=== PATIENT | female | born 1990 | race Caucasian/White ===

== ENCOUNTER 2020-08-22 17:13 | Emergency (ER) | payer MEDICARE, MEDICAID, SELFPAY ==
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
[2020-08-22 17:54] VITALS: BP 142/82; PULSE 112; RESP 16; TEMP 36.8; O2SAT 97; BMI 25.8
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
[2020-08-22] MEDS: 0.9 % Sodium Chloride 1,000 ML 999 ML IVCONT ×2 (18:36→21:18)
[2020-08-22 18:39] VITALS: BP 118/80; PULSE 81; O2SAT 98
[2020-08-22 18:45] LABS: MANUAL DIFF FLAG NO
[2020-08-22 18:46] LABS: Basophils Percent Auto 0.2 % (0-2); Eosinophils Percent Auto 0.1 % (0-4); Hematocrit 40.6 % (37-47); Hemoglobin 13.9 g/dl (12.0-16.0); Imm Gran Abs Auto 0.05 X10*3/uL (0.00-0.03); Imm Gran Pct Auto 0.3 % (0.0-0.4); Lymphocytes Absolute Auto 2.2 X10*3/uL (1.2-4.9); Lymphocytes Percent Auto 13.4 % (20-40); Mean Corpuscular HGB Conc 34.2 g/dl (31.0-35.0); Mean Corpuscular Volume 87.7 fL (80-98); Mean Platelet Volume 8.9 fL (9.4-12.3); Monocytes Absolute Auto 1.2 X10*3/uL (0.1-1.2); Monocytes Percent Auto 6.9 % (2-11); Neutrophils Absolute Auto 13.1 X10*3/uL (2.0-8.3); Neutrophils Percent Auto 79.1 % (45-73); Platelet Count 393 X10*3/uL (160-400); Red Blood Count 4.63 X10*6/uL (4.20-5.50); Red Cell Distribution Width 13.3 % (11.0-16.0); White Blood Count 16.6 X10*3/uL (4.8-10.8)
[2020-08-22 19:15] LABS: Alanine Aminotransferase 8 U/L (0-31); Albumin Level 4.4 g/dL (3.5-5.0); Alkaline Phosphatase 83 U/L (39-117); Anion Gap 15 (12-20); Aspartate Amino Transferase 14 U/L (5-31); Bilirubin Direct 0.2 mg/dL (0.0-0.5); Bilirubin Total 0.3 mg/dL (0.0-1.0); Blood Urea Nitrogen 8 mg/dL (9-16); Calcium 9.5 mg/dL (8.4-10.2); Carbon Dioxide 25 mmol/L (22-29); Chloride 105 mmol/L (96-108); Creatinine Clr Calc Pharmacy 106.9; Estimated Glomerular Filt Rate > 60; Glucose Random 101 mg/dL (60-115); Magnesium 2.1 mg/dL (1.6-2.6); Potassium 3.8 mmol/L (3.3-5.1); Sodium 141 mmol/L (135-145); Total Protein 7.1 g/dL (6.5-8.0)
[2020-08-22 19:21] LABS: HCG Quantitative < 2 mIU/mL
[2020-08-22] MEDS: iohexoL 350 MG/ML 100 ML INFUS..BTL IV (19:45)
[2020-08-22] MEDS: Morphine Sulfate 4 MG/ML CARTRIDGE IVPUSH (20:05)
[2020-08-22 20:51] LABS: Glucose Urine UA NEG (NEG); Leukocyte Esterase Urine NEG (NEG); Nitrite Urine NEG (NEG); Specific Gravity - Urine <= 1.005 (1.005-1.025); Urine Blood NEG (NEG); Urine Ketones 15 MG/DL (NEG); Urine Protein NEG (NEG-TRACE)
[2020-08-22 20:57] LABS: Appearance Urine CLEAR; Color Urine YELLOW
[2020-08-22] MEDS: cefTRIAXone sodium 500 MG, Lidocaine HCl 1 % MPF 1 ML IM (21:18)
[2020-08-22] MEDS: metroNIDAZOLE 500 MG TABLET 2000 MG PO (21:19)
[2020-08-22] MEDS: Azithromycin 500 MG TABLET 1000 MG PO (21:19)
[2020-08-22 21:27] VITALS: BP 131/74; PULSE 80; RESP 16; O2SAT 98
[2020-08-22] MEDS: ondansetron HCL 4 MG/2 ML VIAL IVPUSH (21:56)
[2020-08-22] MEDS: Ketorolac Tromethamine 30 MG/ML VIAL IVPUSH (21:56)
[2020-08-22 23:57] VITALS: RESP 16
[2020-08-23] MEDS: Acetaminophen 325 MG TABLET 975 MG PO (00:05)
[2020-08-23 02:29] VITALS: RESP 16
[2020-08-23 02:40] LABS: CT PCR NOT DETECTED (Not Detect.); NG PCR NOT DETECTED (Not Detect.)
[2020-08-23 08:51] LABS: BV Int Neg Control Negative (Negative); BV Int Pos Control Positive (Positive)
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
== END 2020-08-23 02:31 | disposition home or self-care (01) ==
PROVIDERS: Physician Assistant; Emergency Provider Emergency Medicine; PCP Nurse Practitioner Family
DX: T74.21XA Adult sexual abuse, confirmed, initial encounter (principal); Y07.03 Male partner, perpetrator of maltreatment and neglect
CPT/HCPCS: 36415; 74177; 80048; 80076; 81003; 83735; 84702; 85025; 86850; 86900; 86901; 87480; 87491; 87510; 87591; 87660; 96361; 96372; 96374; 96375; 99284; 99291; J0696; J1885; J2270; J2405; Q9967

== ENCOUNTER 2021-07-04 01:19 | Emergency (ER) | payer OTHER, MEDICAID, SELFPAY ==
[2021-07-04 01:34] VITALS: BMI 24.1
--- NOTE | 2021-07-04 02:08 | ED.PSYCH ---
HPI - Psych General Chief Complaint: Psychiatric Symptoms Stated Complaint: Crisis Time Seen by Provider: 07/04/21 02:08 Source: patient Mode of arrival: ambulatory Limitations: no limitations History of Present Illness HPI Narrative: 31-year-old female came in for evaluation of being depressed and frustrated. Patient drove herself to the ED for further psych evaluation, patient had argument with her mother who did restraining order on the patient and kicked her out of the house, patient now is homeless has no place to go came in to the hospital for help. At this point patient feel depressed but no SI or HI. Related Data Home Medications Medication Instructions Recorded Confirmed hydroxyzine pamoate 50 mg capsule 1 cap PO TID PRN 07/04/21 07/04/21 risperidone 1 mg tablet 1 tab PO BEDTIME 07/04/21 07/04/21 Allergies Allergy/AdvReac Type Severity Reaction Status Date / Time acetaminophen [From VICODIN] Allergy Unknown ITCHY/NAUSE Verified 08/22/20 17:58 OUS Cephalosporins Allergy Unknown RASH Verified 08/22/20 17:58 [CEPHALOSPORINS] codeine [CODEINE] Allergy Unknown ITCHY/NAUSE Verified 08/22/20 17:58 OUS sumatriptan [From IMITREX] Allergy Unknown HEAD FELT Verified 08/22/20 17:58 ON FIRE From VICODIN Allergy Unknown ITCHY/NAUSE Uncoded 08/22/20 17:58 OUS Review of Systems Review of Systems: All other systems are reviewed and are negative Constitutional: Reports as per HPI and Reports no additional constitutional complaints Eyes: Reports as per HPI and Reports no additional eye complaints Reports system reviewed and no additional complaints, except as documented Cardiovascular: Reports as per HPI and Reports no additional cardiovascular complaints Respiratory: Reports as per HPI and Reports no additional respiratory complaints Gastrointestinal: Reports as per HPI and Reports no additional gastrointestinal complaints Genitourinary: Reports no additional female genitourinary complaints Musculoskeletal: Reports no additional musculoskeletal complaints Skin/Breast: Reports system reviewed and no additional complaints, except as docu Psychiatric: Reports no additional psychiatric complaints Endocrine: Reports no additional endocrine complaints Hematologic/Lymphatic: Reports no additional hematologic/lymphatic complaints Allergic/Immunologic: Reports no additional allergic/immunologic complaints Reports system reviewed and no additional complaints, except as documented and Reports Abnormal speech present [facility] Past Medical History Medical History No known health problems Social History Social History Alcohol intake: never Patient Tobacco Use Status: Current everyday Tobacco user Substance Use Type: Marijuana Physical Exam Vital Signs: Vital Signs: BMI result Body Mass Index 24.1 Vital signs have been reviewed as appeared to be correct. Blood pressure normal. Heart rate normal. Respiration rate normal. Temperature normal. Oxygen saturation normal. Appearance: Alert. Oriented X3. No acute distress. Head: Normal external exam. Normocephalic. Atraumatic. No Lundberg signs noted. No raccoon eyes noted Eyes: PERRLA. EOMI. Conjunctiva and sclera normal. Eyelids normal. ENT: TM's Normal. Pharynx normal. Uvula midline. Moist mucous membranes. No trismus noted. No drooling noted. No muffled voice noted. Neck: Normal inspection. Neck supple. FROM. No adenopathy. Thyroid Normal. No meningeal signs. No neck mass noted. CVS: Normal heart rate and rhythm. Heart sound normal. No murmurs noted. Pulses normal throughout. Respiratory: No respiratory distress. Painless inspiration. Breath sounds normal. No wheezes/rales/rhonchi noted. Chest nontender. No accessory muscle usage noted or decreased air movement noted. Abdomen: Soft and nontender. Bowel sounds normal in all 4 quadrants. No distention noted. No organomegaly noted. No visible injury noted. Back: No CVA tenderness. Full range of motion noted. Skin: Skin warm and dry. Normal skin color. Normal skin turgor. No rashes/lesions/lacerations noted. Extremities: No lower extremity edema. Extremities exhibit normal range of motion. Extremities nontender. Neuro: Oriented X 3. Cranial nerve exam: II-XII are grossly intact No motor deficit. No sensory deficit. Reflexes normal. Patient Orientation: Person, Place, Time and Situation Level of Consciousness: Awake, Appropriate and Alert Patient Behavior: Appropriate, Guarded, Cooperative and Anxious Mood Description: Constricted, Blunted and Apprehensive Affect Description: Constricted, Blunted and Apprehensive Patient Cognition Impaired: No Ability to Follow Directions: Excellent Speech Pattern: Clear, Appropriate and Spontaneous Speech Memory Description: Intact, Immediate Intact and Short Term Intact Hallucinations: None Delusions: Not Present Thought Process: Intact Thought Content: positive for Intact, positive for Logical, denies Suicidal Ideation and denies Homicidal Ideation. Judgement: Good Judgement and Insight: Intact Course Course Course Narrative: Assessment and plan 31-year-old female came in for evaluation after having heart mint with her mother, patient feeling depressed but no SI or HI, patient will be kept on observation until then evaluated by [facility]. Reevaluation(s) Reevaluation #1: Physician observation started at 2:10 . Patient placed in physician observation because the patient needed more time for [facility] evaluation patient's vital sign were stable, patient is alert and oriented , neuro exam unchanged, unremarkable rest of physical exam. Time: 02:13 Discharge Plan Discharge Clinical Impression: Depression Prescriptions: No Action hydroxyzine pamoate 50 mg capsule 1 cap PO TID PRN (Reason: anxiety) 0RF risperidone 1 mg tablet 1 tab PO BEDTIME 0RF
[2021-07-04 02:28] LABS: MANUAL DIFF FLAG NO
[2021-07-04 02:29] VITALS: BP 116/76; PULSE 83; TEMP 36.4; O2SAT 97
[2021-07-04 02:30] LABS: Basophils Percent Auto 0.3 % (0-2); Eosinophils Absolute Auto 0.1 X10*3/uL (0.0-0.4); Eosinophils Percent Auto 1.3 % (0-4); Hematocrit 38.2 % (37.0-47.0); Hemoglobin 13.1 g/dl (12.0-16.0); Imm Gran Abs Auto 0.02 X10*3/uL (0.00-0.03); Imm Gran Pct Auto 0.2 % (0.0-0.4); Lymphocytes Absolute Auto 3.5 X10*3/uL (1.2-4.9); Lymphocytes Percent Auto 38.2 % (20-40); Mean Corpuscular HGB Conc 34.3 g/dl (31.0-35.0); Mean Corpuscular Hemoglobin 29.8 pg (27.0-33.0); Mean Platelet Volume 9.2 fL (9.4-12.3); Monocytes Absolute Auto 0.9 X10*3/uL (0.1-1.2); Monocytes Percent Auto 9.4 % (2-11); Neutrophils Absolute Auto 4.7 x10*3/uL (2.0-8.3); Neutrophils Percent Auto 50.6 % (45-73); Platelet Count 311 X10*3/uL (160-400); Red Blood Count 4.39 X10*6/uL (4.20-5.50); Red Cell Distribution Width 12.3 % (11.0-16.0); White Blood Count 9.2 X10*3/uL (4.8-10.8)
[2021-07-04 02:43] LABS: COVID-19 Test Negative (Negative); Ethanol < 10 mg/dL
[2021-07-04 02:44] LABS: Anion Gap 10 (12-20); Blood Urea Nitrogen 16 mg/dL (9-16); Calcium 10.2 mg/dL (8.4-10.2); Carbon Dioxide 28 mmol/L (22-29); Chloride 103 mmol/L (96-108); Estimated Glomerular Filt Rate > 60; Glucose Random 135 mg/dL (60-115); Potassium 3.5 mmol/L (3.3-5.1); Sodium 137 mmol/L (135-145)
[2021-07-04 02:44] LABS: Amphetamine Screen Urine Not Detected (Not Detect); Barbiturates, Urine Not Detected (Not Detect); Benzodiazepines Screen Urine Not Detected (Not Detect); Cannabinoid Screen Urine POSITIVE (Not Detect); Cocaine Screen Urine Not Detected (Not Detect); Fentanyl, urine Not Detected (Not Detect); Opiate Screen Urine Not Detected (Not Detect); Phencyclidine Screen Urine Not Detected (Not Detect)
--- NOTE | 2021-07-04 07:04 | PC.NURSE ---
Patient slept through the night, no distress observed/reported, behavior non concerning, med rec completed/pending provider's approval, VSS, [facility] referral completed/confirmed/pending ETA, will continue to monitor.
[2021-07-04 07:45] VITALS: BP 116/77; PULSE 88; RESP 19; TEMP 36.8; O2SAT 94
[2021-07-04] MEDS: hydrOXYzine HCL 50 MG TABLET PO (09:16)
--- NOTE | 2021-07-04 10:41 | MHC.CARE ---
CARE Team met with Pt who presented to [facility] voluntary due to her mom kicking her out. Pt denies current SI/HI/VH/AH. Pt reports her mom filed a restraining order on her due to ongoing issues. Pt stated she wasn't sure it was real . t/w verified that the restraining was active with Kenji RIVERA. Pt stated she has issues with her health insurance and picking up medication. CARE Team spoke with financial counseling who reported Pt was automatically given managed medicare/ [employer]. CARE Team explained information to Pt. Plan for Pt to drive herself to the living room. Pt was given financial counseling information regarding health insurance. Pt was provided information for [facility] crisis.
== END 2021-07-04 19:47 | disposition home or self-care (01) ==
PROVIDERS: Emergency Provider Emergency Medicine; PCP Nurse Practitioner Family
DX: F33.1 Major depressive disorder, recurrent, moderate (principal); F43.9 Reaction to severe stress, unspecified; F17.200 Nicotine dependence, unspecified, uncomplicated; Z71.6 Tobacco abuse counseling; Z20.822 Contact with and (suspected) exposure to COVID-19; Z79.899 Other long term (current) drug therapy
CPT/HCPCS: 36415; 80048; 80307; 82077; 85025; 87635; 99283; 99284

== ENCOUNTER 2023-11-06 10:38 | Outpatient (AMB) | payer OTHER, MEDICAID, SELFPAY ==
--- NOTE | 2023-11-06 10:44 | A.OFFPC_ITS ---
Vital Signs 11/06/23 10:55 11/06/23 11:18 Height 5 ft 4 in Weight 208 lb 2 oz BMI 35.7 BP 132/74 Blood Pressure Location Rt brachial Position Sitting Respiration 14 Pulse 120 H 105 H Pulse Source Pulse Oximeter Auscultation Pulse Oximetry (%) 96 Oxygen Delivery Method Room Air Intake Visit Reasons: requesting pe Intake Note: new patient to establish care Allergies alcohol Allergy (Severe, Verified 11/06/23 11:06) asthma acetaminophen [From VICODIN] Allergy (Unknown, Verified 11/06/23 11:06) ITCHY/NAUSEOUS Cephalosporins [CEPHALOSPORINS] Allergy (Unknown, Verified 11/06/23 11:06) RASH codeine [CODEINE] Allergy (Unknown, Verified 11/06/23 11:06) ITCHY/NAUSEOUS sumatriptan [From IMITREX] Allergy (Unknown, Verified 11/06/23 11:06) HEAD FELT ON FIRE From VICODIN Allergy (Unknown, Uncoded 08/22/20 17:58) ITCHY/NAUSEOUS Medication List - Last Reconciled 11/06/23 by Norma Weiner, ACCESS ANALYST- albuterol sulfate 90 mcg/actuation inhalation clonazepam mg PO clozapine 300 mg PO DAILY dextroamphetamine-amphetamine 20 mg ER 1 cap PO QAM fluticasone propionate 50 mcg/actuation sprays intranasal glycopyrrolate mg PO omeprazole 20 mg PO DAILY risperidone mg PO Tobacco use date assessed: 11/06/23 Dental Screening Dental Screen Date: 11/06/23 Did you have a dental visit in the last 12 months?: Yes Did you have a dental problem in the last 6 months where you did not have access to dental care?: No Was dental information given to patient?: Patient has dentist HPI HPI Comments History of Present Illness Details 33-year-old female with bipolar 1 disord er, schizophrenia, generalized anxiety disorder, major depressive disorder, chronic GERD, ADHD, mild intermittent asthma, renal stones, current tobacco dependence, obesity, self- reported pre melanoma on right hip Status post cone biopsy of her cervix, hemorrhoidectomy, several skin lesions removed, left breast abscess drainage Several psychiatric hospitalizations Health Maintenance: ? 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 Tdap reports up-to-date in the last 10 years Specialists: [facility] welfare eligibility worker Service Net prescriber and counselor GUME who admins her meds twice per day, unsure of the agency Here today as a new patient to establish care for complete physical exam. States that she is coming from [facility]. She does not have any medical records. She states that all of her chronic medical conditions are currently well controlled. She has had several psychiatric admissions, the last 03/15/2023 where she was sent in to [facility] for 3 months by the glass bender. She reports that she has not been hospitalized inpatient since this time but states that she has a lifetime of psychiatric decompensations requiring admission. She continues to smoke. She does have nicotine patches at home and will use them once she is ready. Optho - no glasses, no vision concerns. Asthma is well controlled Reports constipation. Use Colace in the past. Wonders if she can get a prescription for this. GERD well controlled Routine follow up [facility] Reports routine lab monitoring done by her care team [facility] Medical History (Updated 11/06/23 @ 13:06 by Norma Weiner, [facility]) Schizophrenia Bipolar 1 disorder Anxiety and depression Kidney stones Chronic GERD ADHD Asthma Breast lump Surgical History (Updated 11/06/23 @ 11:03 by Camille Logan MA) H/O hemorrhoidectomy H/O cone biopsy of cervix Family History (Updated 11/06/23 @ 11:06 by Camille Logan MA) Mother Mental health disorder Skin cancer Father Substance abuse Maternal Grandmother Skin cancer Paternal Grandfather Skin cancer Social History (Updated 11/06/23 @ 10:54 by Camille Logan MA) Household Members: None Housing: Apartment Are you a primary career services manager to a significant other at home: No Do you presently have visiting nurse or other home services: No 75 years or older and lives alone: No Alcohol intake: never Patient Tobacco Use Status: Current everyday Tobacco user Cigarettes Per Day: 5 Years Smoked: 10 e-Cigarette/Vaping Use: Never Used Second Hand Smoke Exposure: No Substance Use Type: Marijuana Current occupational status: unemployed Cognitive needs: No Hearing needs: No Vision needs: No Questionnaire PHQ-9 Over the last 2 weeks, how often have you been bothered by any of the following problems? 1. Little interest or pleasure in doing things: not at all 2. Feeling down, depressed, or hopeless: not at all 3. Trouble falling or staying asleep, or sleeping too much: not at all 4. Feeling tired or having little energy: not at all 5. Poor appetite or overeating: not at all 6. Feeling bad about yourself - or that you are a failure or have let yourself or your family down: several days 7. Trouble concentrating on things, such as reading the newspaper or watching television: not at all 8. Moving or speaking so slowly that other people could have noticed. Or the opposite - being so fidgety or restless that you have been moving around a lot more than usual: not at all 9. Thoughts that you would be better off or of hurting yourself in some way: not at all Total score: 1 Depression Screening Interpretation: Negative Depression Screening Done: Yes 25484 - PHQ-9 Billing: Yes Source: Developed by Drs. Marvin Lazo, Jennifer Wooten, Raymundo Grayson and colleagues, with an educational bebeto from [employer]. Thrive Questionnaire Date Thrive assessed: 11/06/23 I am a: Patient What is your living situation today?: I have a steady place to live Within the past 12 months, did the food you bought not last and you didn't have the money to get more?: Often true Within the past 12 months, did you worry whether your food would run out before you got money to buy more?: Often true Do you have trouble paying for medicines?: No Do you have trouble getting transportation to medical appointments?: No Do you have trouble paying your heating and electricity bill?: No Do you have trouble taking care of your child, family member or friend?: No Do you have trouble with day-to-day activities such as bathing, preparing meals, shopping, managing finances, etc.?: No Are you currently unemployed and looking for a job?: Yes Are you interested in more education?: No Currently or been in a relationship where the following occur: No concerns reported THRIVE Score: 2 AUDIT C Alcohol Use Questionnaire (AUDIT-C) 1. How often do you have a drink containing alcohol?: Never 2. How many drinks containing alcohol do you have on a typical day when you are drinking?: 1 or 2 3. How often do you have six or more drinks on one occasion?: Never Total Score: 0 Score Reviewed/Action Taken: Yes CHAIM-7 AMB Questionnaire CHAIM-7 Date CHAIM - 7 assessed: 11/06/23 Feeling nervous, anxious, or on edge: 1 = Several days Not being able to stop or control worryin = Several days Worrying too much about different things: 0 = Not at all Trouble relaxin = Not at all Being so restless that it is hard to sit still: 0 = Not at all Becoming easily annoyed or irritable: 0 = Not at all Feeling afraid as if something awful might happen: 0 = Not at all Total CHAIM-7 score (0-4 normal; 5-9 mild; 10-14 moderate; 15-21 severe): 2 Source: Developed by Drs. Marvin Lazo, Jennifer Wooten, Raymundo Grayson and colleagues, with an educational bebeto from [employer]. CHAIM-7 Assessment Billing CHAIM-7 Assessment Tool: CHAIM-7 Assessment 28159 ACT Questionnaire In the past 4 weeks, how much of the time did your asthma keep you from getting as much done at work, school or at home?: None of the time During the past 4 weeks, how often have you had shortness of breath?: Not at all During the past 4 weeks, how often did your asthma symptoms wake you up at night or earlier than usual in the morning?: Not at all During the past 4 weeks, how often have you had to use your rescue inhaler or nebulizer medication?: Not at all How would you rate your asthma control during the past 4 weeks?: Well controlled Score: 24 Review of Systems Const Details: Constitutional: Denies fever. Skin: Denies rash. Eye: Denies eye pain. ENMT: Denies sore throat and nasal congestion. Respiratory: Denies shortness of breath and cough. Gastrointestinal: Denies nausea, vomiting or abdominal pain. Cardiovascular: Denies chest pain and syncope. Genitourinary: Denies dysuria. Musculoskeletal: Denies back pain and extremity pain. Neurologic: Denies headaches, confusion, and weakness. Psychiatric: Denies suicidal thoughts Allergy/ Immunologic: Denies impaired immunity. Physical exam (Primary Care) Vital Signs: Last Vital Signs Pulse 105 H 11/06/23 11:18 Resp 14 11/06/23 10:55 BP 132/74 11/06/23 10:55 Pulse Ox 96 11/06/23 10:55 Oxygen Delivery Method Room Air 11/06/23 10:55 BMI result Body Mass Index 35.7 BMI Assessment/Plan discussion: High BMI High, discussed plan: lifestyle Tobacco/Smoking Status: Tobacco use Status Tobacco use date assessed 11/06/23 11/06/23 10:57 Patient Tobacco Use Status Current everyday Tobacco 11/06/23 10:54 e-Cigarette/Vaping Use Never Used 11/06/23 10:57 Are you ready to quit: No Tobacco cessation counseling provided: Yes Items discussed: Nicotine replacement Relapse Prevention: discussed the importance of a supportive environment, discussed extending NRT, discussed negative mood or depression after quitting, weight gain after smoking is common and discussed dietary, exercise and/or lifestyle changes CPT code: 18737 - 4-10 Minutes PHQ-9: PHQ-9 Score PHQ-9: Total score 1 11/06/23 12:34 Depression Screening Interpretation: Negative Thrive Assessment: Date of Thrive Assessment Date Thrive assessed 11/06/23 11/06/23 11:06 Currently or been in a relationship where the following occur: No concerns reported Const Other: General: Well developed, well nourished, in no acute distress. Appears stated age. Head: Normocephalic, atraumatic. Eyes: Pupils are equal, round and reactive to light and accommodation. Conjunctivae are clear. Vision grossly normal. Ears: TMs clear AU, EACS WNL Nose: Patent, without discharge. Mouth: There are no ulcers or lesions noted. No inflammation, no post nasal drip, no plaques nor exudates. Neck: Supple, no adenopathy or thyromegaly. Lungs: Clear to auscultation bilaterally. No rales, rhonchi or wheeze noted. Good air flow in all starr. Heart: Regular rate and rhythm. No murmurs, click, rubs or gallops are noted. Abdomen: Bowel sounds present in all quadrants. The abdomen is soft, nontender, with no masses or organomegaly noted. No hernias are noted. Musculoskeletal: Joints are nontender, without swelling, redness, or effusions. Range of motion is observed to be normal. Pulses: Peripheral pulses are equal and palpable bilaterally. Extremities: No clubbing, cyanosis nor edema is noted. Neurologic: Gait and station normal. Cranial Nerves 2-12 intact. Motor strength grossly symmetrical and intact. No sensory loss. Balance normal. Skin: No rashes, ulcers, or lesions noted. Turgor is good. Skin color is good. Hair and nails are without abnormalities. Psych: Normal eye contact, affect and mood appropriate, and normal interactions. Patient is alert and appropriate to context. Assessment and Plan Assessment & Plan (1) Schizophrenia: Code(s): F20.9 - Schizophrenia, unspecified Qualifiers: Schizophrenia type: disorganized schizophrenia Qualified Code(s): F20.1 - Disorganized schizophrenia (2) Bipolar 1 disorder: Code(s): F31.9 - Bipolar disorder, unspecified (3) Encounter for general adult medical examination without abnormal findings: Code(s): Z00.00 - Encounter for general adult medical examination without abnormal findings (4) CHAIM (generalized anxiety disorder): Code(s): F41.1 - Generalized anxiety disorder (5) MDD (major depressive disorder), recurrent episode: Code(s): F33.9 - Major depressive disorder, recurrent, unspecified Qualifiers: Major depression episode severity: moderate Qualified Code(s): F33.1 - Major depressive disorder, recurrent, moderate (6) Mild intermittent asthma in adult without complication: Code(s): J45.20 - Mild intermittent asthma, uncomplicated (7) Tobacco dependence: Code(s): F17.200 - Nicotine dependence, unspecified, uncomplicated (8) Severe obesity (BMI 35.0-35.9 with comorbidity): Code(s): E66.01 - Morbid (severe) obesity due to excess calories; Z68.35 - Body mass index [BMI] 35.0-35.9, adult (9) Precancerous skin lesion: Code(s): L98.9 - Disorder of the skin and subcutaneous tissue, unspecified (10) Chronic constipation: Code(s): K59.09 - Other constipation (11) Chronic GERD: Code(s): K21.9 - Gastro-esophageal reflux disease without esophagitis (12) ADHD: Code(s): F90.9 - Attention-deficit hyperactivity disorder, unspecified type Qualifiers: Attention deficit-hyperactivity disorder type: combined inattentive- hyperactive Qualified Code(s): F90.2 - Attention-deficit hyperactivity disorder, combined type Medications: New docusate sodium (Colace) hold for loose stools or diarrhea 100 mg PO BID PRN 180 caps 2RF constipation albuterol sulfate 90 mcg/actuation 2 inhalations inhalation Q6H PRN 8.5 grams 2RF bronchospasm omeprazole 20 mg PO DAILY 90 caps 2RF fluticasone propionate 50 mcg/actuation 2 sprays intranasal BID 16 grams 12RF Patient Instructions: Walk-In Care (Urgent Care): We Make it Easy Walk-in for urgent medical issues such as: ? Seasonal Allergies ? Insect Bites ? Cough ? Diarrhea ? Acute Asthma Attacks ? Back, Knee or Joint Pain ? Ear Infection ? Fever without a Rash ? Headaches ? Nausea ? Bush Eye, Rash or Skin Irritation ? Sore Throat ? Sports Physicals ? Vomiting Most insurances are accepted. Patients do not need to be part of the [facility] to seek care at the walk-in clinic. Locations [address] [place] [address] [place] [address] ? [phone] [facility] Walk-In Care in [place] provides services to ages 18 and over. Open Thursday-Thursday: 8 a.m. to 5 p.m. and Thursday: 9 a.m. to 3 p.m.* *Hours may vary due to staffing availability. To confirm Walk-In Care hours in [place], please call [phone]. [address] [place] [address] ? [phone] [facility] Walk-In Care in [place] provides services to ages 12 and over. Open Thursday-Thursday: 8 a.m. to 5 p.m. Hours may vary due to staffing availability. To confirm Walk-In Care hours in [place], please call [phone]. LABORATORY SERVICES: [facility] Lab ? Primary Location [address] [place] [address] Thursday through Thursday 6:00 AM ? 5:00 PM Thursday 7:00 AM ? 11:00 AM* [phone] [facility] Lab is centrally located near the front entrance of the [facility] for easy outpatient access. Convenient parking is provided for outpatients. *Hours may vary due to staffing availability. To confirm Laboratory hours for any location, please call [phone]. Offsite Location For your convenience, we offer offsite laboratory draw stations at the following locations: [address] [place] [address], [address], [address], [place] Thursday through Thursday 7:30 AM ? 1:00 PM* [phone] *Hours may vary due to staffing availability. To confirm Laboratory hours for any location, please call [phone]. [place] ? [facility] [address] [facility], [place] Thursday through Thursday 6:00 AM ? 3:30 PM* Thursday 6:30 AM ? 3 PM* [phone] *Hours may vary due to staffing availability. To confirm Laboratory hours for any location, please call [phone] [facility] Thursday through Thursday 7:30 AM ? 4:00 PM* [phone] *Hours may vary due to staffing availability. To confirm Laboratory hours for any location, please call [phone] [place] [address] Thursday through 9:00 AM ? 4:00 PM* *Hours may vary due to staffing availability. To confirm Laboratory hours for any location, please call [phone]. Appointments are not necessary. Walk-ins are welcome. Like all the departments throughout the [facility], our Lab undergoes frequent reviews to ensure the quality and accuracy of test results, and our staff takes special pride in its status as a nationally accredited facility. Patient Portal: ONE PATIENT. ONE RECORD. BETTER CARE. [facility] has a fully integrated, cutting- edge mobile electronic health information system that has revolutionized the way we care for our patients and manage our organization. This system improves communication and coordination enabling us to provide safe, higher-quality care, and an overall positive experience for staff and patients. Our first priority, as always, is to deliver the highest quality care possible. The system is running in the background supporting that priority. This portal is for all [facility] services and practices. If you are experiencing any technical difficulties with enrolling or logging into the Patient Portal please complete the [facility] Patient Portal Technical Support Form. [facility] now offers a new secure on-line interactive tool for patients to review their health information ? ?Patient Portal. This interactive web portal will enable patients and their families to take an active role in their care by providing easy, secure access to their health information via the internet. The Patient Portal provides patients with instant access to their health information, including laboratory results, medications, allergies, demographic information, visit history, and more. In addition to managing their own care, parents and health care proxies with authorized consent will appreciate the ability to access the records of those individuals for whom they provide care. Please note: if you wish to gain access (Proxy) to another patient?s portal, you will be required to come to the Medical Records Department in person at [facility]. Both the patient giving proxy access and the proxy will need to provide photo identification and complete the appropriate authorization. The Patient Portal also allows track their appointments online. The [facility] Patient Portal also saves patients time by allowing them to submit updates to their demographic and contact information prior to their visits. Portal email notifications will also alert patients to any new activity on their portal, such as test results and new appointments. In order to initially enroll in the [facility] Patient Portal, you will need to enter some required information including the following: * your [facility] Medical Record number * your personal home email address * name * date of Please note: In order to enroll in the [facility] Patient Portal, we need to have your email address on file in your electronic medical record. ?The email address needs to be specific for one person (yourself) in order for your Portal enrollment to be successful. ?You can update your email address in person with our Registration staff when you are registering for a hospital visit. ?Otherwise, you will need to come to the Health Information Management (Medical Records) Department at [facility]. ?We are open from Thursday ? Thursday from 7:30 a.m. ? 4:30 p.m. ?You will be required to present a photo id. Once you have successfully enrolled in the Patient Portal, you will receive a one-time user id and password for the Portal, sent to your email address. ?This will allow you to log into the Patient Portal within 99 hrs and reset your own logon id and password, and define personal security questions. ?Once your permanent login and password have been set, you can log into the [facility] Patient Portal at any time via the blue button above or from the Portal Logon button on any page of the [facility] website. [facility] encourage all of our patients to enroll in Patient Portal as it presents a valuable opportunity for patients and their families to actively participate in their care and stay healthy Welcome to [facility]. ?We look forward to working with you. Health screenings for women You should visit your health care provider from time to time, even if you are healthy. The purpose of these visits is to: Screen for medical issues Assess your risk for future medical problems Encourage a healthy lifestyle Update vaccinations and other preventive care services Help you get to know your provider in case of an illness Information Even if you feel fine, you should still see your provider for regular checkups. These visits can help you avoid problems in the future. For example, the only way to find out if you have high blood pressure is to have it checked regularly. High blood sugar and high cholesterol levels also may not have any symptoms in the early stages. A simple blood test can check for these conditions. There are specific times when you should see your provider or receive specific health screenings. The [place] Preventive Services Task Force publishes a list of recommended screenings. Below are screening guidelines for women ages 18 to 39. BLOOD PRESSURE SCREENING Your blood pressure should be checked at least once every 3 to 5 years if: Your blood pressure is in the normal range (top number less than 120 mm Hg and bottom number less than 80 mm Hg) You don't have risk factors for high blood pressure Ask your provider if you need your blood pressure checked more often if: The top number is 120 to 129 mm Hg or the bottom number is 70 to 79 mm Hg You have diabetes, heart disease, kidney problems, are overweight, or have certain other health conditions You have a first-degree relative with high blood pressure You are Black You had high blood pressure during a If the top number is 130 mm Hg or greater or the bottom number is 80 mm Hg or greater, this is considered stage 1 hypertension. Schedule an appointment with your provider to learn how you can reduce your blood pressure. Watch for blood pressure screenings in your area. Ask your provider if you can stop in to have your blood pressure checked. BREAST CANCER SCREENING Experts do not agree about the benefits of breast self-exams in finding breast cancer or saving lives. Talk to your provider about what is best for you. A screening mammogram is not recommended for most women under age 40. Your provider may discuss and recommend mammograms, MRI scans, or ultrasounds if you have an increased risk for breast cancer, such as: A mother or sister who had breast cancer at a young age (most often starting screening earlier than the age the close relative was diagnosed) You carry a high-risk genetic marker CERVICAL CANCER SCREENING Cervical cancer screening should start at age 21 years unless your provider advises otherwise. After the first test: Women ages 21 through 29 should have a Pap test every 3 years. Exoprts do not agree on whether HPV testing is recommended for this age group. Women ages 30 through 65 should be screened with either a Pap test every 3 years or the HPV test every 5 years or both tests every 5 years (called cotesting ). Women who have been treated for precancer (cervical dysplasia) should continue to have Pap tests for 20 years after treatment or until age 65, whichever is longer. If you have had your uterus and cervix removed (total hysterectomy), and you have not been diagnosed with cervical cancer or precancer (high grade cervical neoplasia), you do not need cervical cancer screening. CHOLESTEROL SCREENING Cholesterol screening should begin at: Age 45 for women with no known risk factors for coronary heart disease Age 20 for women with known risk factors for coronary heart disease Repeat cholesterol screening should take place: Every 5 years for women with normal cholesterol levels More often if changes occur in lifestyle (including weight gain and diet) More often if you have diabetes, heart disease, kidney problems, or certain other conditions DIABETES SCREENING You should be screened for diabetes starting at age 35 and then repeated every 3 years if you have no risk factors for diabetes. Screening may need to start earlier and be repeated more often if you have other risk factors for diabetes, such as: You have a first degree relative with diabetes. You are overweight or have obesity. You have high blood pressure, prediabetes, or a history of heart disease. Screening for diabetes should be done if you are planning to become and you are overweight and have other risk factors such as high blood pressure. DENTAL EXAM Go to the dentist once or twice every year for an exam and cleaning. Your dentist will evaluate if you need more frequent visits. EYE EXAM Have an eye exam every 5 to 10 years before age 40. If you have vision problems, have an eye exam every 2 years or more often if recommended by your provider. You should have an eye exam that includes an examination of your retina (back of your eye) at least every year if you have diabetes. IMMUNIZATIONS Commonly needed vaccines include: Flu shot: get one every year. COVID-19 vaccine: ask your provider what is best for you. Tetanus-diphtheria and acellular pertussis (Tdap) vaccine: have one at or after age 19 as one of your tetanus-diphtheria vaccines if you did not receive it as an adolescent. Tetanus-diphtheria: have a booster (or Tdap) every 10 years. Varicella vaccine: receive 2 doses if you never had chickenpox or the varicella vaccine. Hepatitis B vaccine: receive 2, 3, or 4 doses, depending on your exact circumstances. Measles, mumps, and rubella (MMR) vaccine: receive 1 to 2 doses if you are not already immune to MMR. Your provider can tell you if you are immune. Ask your provider about the human papillomavirus (HPV) vaccine if: You have not received the HPV vaccine in the past You have not completed the full vaccine series (you should catch up on this shot) Ask your provider if you should receive other immunizations if you have certain health problems that increase your risk for some diseases such as pneumonia. INFECTIOUS DISEASE SCREENING Women who are sexually active should be screened for chlamydia and gonorrhea up until age 25. Women 25 years and older should be screened for chlamydia and gonorrhea if at high risk. Screening for hepatitis C: All adults ages 18 to 79 should get a one-time test for hepatitis C. people should be screened at every . Screening for human immunodeficiency virus (HIV): All people ages 15 to 65 should get a one-time test for HIV. Depending on your lifestyle and medical history, you may also need to be screened for infections such as syphilis and HIV, as well as other infections. PHYSICAL EXAM All adults should visit their provider from time to time, even if they are healthy. The purpose of these visits is to: Screen for disease Assess your risk of future medical problems Encourage a healthy lifestyle Update your vaccinations and other preventive care services Maintain a relationship with a provider in case of an illness Your height, weight, and BMI should be checked at every exam. During your exam, your provider may ask you about: Depression and anxiety Diet and exercise Alcohol and tobacco use Safety issues, such as using seat belts, smoke detectors, and intimate partner violence Your medicines and risk for interactions SKIN SELF-EXAM Your provider may check your skin for signs of skin cancer, especially if you're at high risk, such as if you: Have had skin cancer before Have close relatives with skin cancer Have a weakened immune system OTHER SCREENING Talk with your provider about colon cancer screening if you have a strong family history of colon cancer or polyps, or if you have had inflammatory bowel disease or polyps yourself. Routine bone density screening of women under 40 is not recommended. Smoking Cessation How to Quit There are a lot of ways to quit smoking and many resources to help you. Family members, friends, and co-workers may be supportive or encouraging, but to be successful the desire and commitment to quit must be your own. Most people who have been able to successfully quit smoking made at least one unsuccessful attempt in the past. Try not to view past attempts to quit as failures, but rather as learning experiences. Stopping smoking or using smokeless tobacco is difficult, but anyone can do it. Know the symptoms to expect when you stop. Common symptoms include: ? An intense craving for nicotine ? Anxiety, tension, restlessness, frustration, or impatience ? Difficulty concentrating ? Drowsiness or trouble sleeping, as well as bad dreams and nightmares ? Drowsiness and trouble sleeping ? Headaches ? Increased appetite and weight gain ? Irritability or depression How severe your symptoms are depends on how long you smoked and how many cigarettes you smoked each day. Feel ready to quit? ? First and foremost, set a quit date and quit completely on that day. Before your quit date, you may begin reducing your cigarette use. But remember, there is no safe level of cigarette smoking. ? List the reasons why you want to quit. Include both short- and long-term benefits. ? Identify the times you are most likely to smoke. For example, do you tend to smoke when feeling stressed or down? When out at night with friends? While drinking coffee or alcohol? When bored? While driving? Right after a meal or sex? During a work break? While watching TV or playing cards? When you are with other smokers? ? Let all of your friends, family, and co-workers know of your plan to stop smoking and your quit date. Just being aware that they know what you're going through can be helpful, especially when you are grumpy. ? Get rid of all your cigarettes just before the quit date, and clean out anything that smells like smoke, such as clothes and furniture. Make a plan about what you will do instead of smoking at those times when you are most likely to smoke. ? Be as specific as possible. For example, drink tea instead of coffee -- tea may not trigger the desire for a cigarette. Or, take a walk when you feel stressed. ? Remove ashtrays and cigarettes from the car. Place pretzels or hard candies there instead. Pretend-smoke with a straw. ? Find activities that focus your hands and mind but are not taxing or fattening. Computer games, solitaire, knitting, sewing, and crossword puzzles may help. ? If you normally smoke after eating, find other ways to end a meal. Play a tape or CD, eat a piece of fruit, get up and make a phone call, or take a walk (a good distraction that also powell calories). Make other changes in your lifestyle. ? Change your daily schedule and habits. Eat at different times or eat several small meals instead of three large ones. Sit in a different chair or even a different room. ? Satisfy your oral habits by eating celery or other low-calorie snack, chewing sugarless gum, or sucking on a cinnamon stick. ? Go to public places and restaurants where smoking is prohibited or restricted. ? Eat regular meals and don't eat too much candy or sweet things. ? Get more exercise. Take walks or ride a bike. Exercise helps relieve the urge to smoke. Set short-term quitting goals and reward yourself when you meet them. ? Every day, put the money you normally spend on cigarettes in a jar. Then buy something pleasurable after a period of time. ? Try not to think about all the days ahead you will need to avoid smoking. Take it one day at a time. ? Even one puff or one cigarette will make your desire for more cigarettes even stronger. However, it is normal to make mistakes. So even if you have one cigarette, you don't need to take the next one. Other tips to help you quit smoking and stick to it: ? Enroll in a smoking cessation program (hospitals, health departments, community centers, and work sites often offer programs). Learn about self-hypnosis or other techniques. ? Ask your health care provider about prescription medications that are safe and appropriate for you. ? Find out about nicotine patches, gum, and sprays. The [employer]'s web site -- www.cancer.org -- is an excellent resource for smokers who are trying to quit, and the [employer] [place] [employer] can help some smokers kick the habit. Above all, don't get discouraged if you aren't able to quit smoking the first time. Nicotine addiction is a hard habit to break. Try something different next time. Develop new strategies, and try again. Many people take several attempts to finally kick the habit. 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2 Attention deficit-hyperactivity disorder type: combined inattentive- hyperactive Additional Codes CHAIM-7 Assessment Billing - CHAIM-7 Assessment Tool: CHAIM-7 Assessment 36528 ([id number]) Vital Signs *Quality* - CPT code: 66623 - 4-10 Minutes ([id number])
[2023-11-06 10:55] VITALS: BP 132/74; PULSE 120; RESP 14; O2SAT 96; BMI 35.7
[2023-11-06 11:18] VITALS: PULSE 105
== END 2023-11-06 11:20 | disposition home or self-care (01) ==
LOC: HO.HMCFM 10:39
PROVIDERS: PCP Nurse Practitioner Family; Visit Provider Nurse Practitioner Family
DX: Z00.00 Encounter for general adult medical examination without abnormal findings (principal); F20.1 Disorganized schizophrenia; E66.01 Morbid (severe) obesity due to excess calories; Z68.35 Body mass index [BMI] 35.0-35.9, adult; F31.9 Bipolar disorder, unspecified; F41.1 Generalized anxiety disorder; J45.20 Mild intermittent asthma, uncomplicated; F17.200 Nicotine dependence, unspecified, uncomplicated; L98.9 Disorder of the skin and subcutaneous tissue, unspecified; K59.09 Other constipation; K21.9 Gastro-esophageal reflux disease without esophagitis

== ENCOUNTER → 2023-11-06 10:38 | Outpatient (BNVA) | payer OTHER, MEDICAID, SELFPAY | PROVIDERS: PCP Nurse Practitioner Family; Visit Provider Nurse Practitioner Family | DX: F20.1 Disorganized schizophrenia (principal); F31.9 Bipolar disorder, unspecified; F41.1 Generalized anxiety disorder; F33.1 Major depressive disorder, recurrent, moderate; J45.20 Mild intermittent asthma, uncomplicated; F17.200 Nicotine dependence, unspecified, uncomplicated; E66.01 Morbid (severe) obesity due to excess calories; Z68.35 Body mass index [BMI] 35.0-35.9, adult; L98.9 Disorder of the skin and subcutaneous tissue, unspecified; K59.09 Other constipation; K21.9 Gastro-esophageal reflux disease without esophagitis; F90.2 Attention-deficit hyperactivity disorder, combined type | CPT/HCPCS: 96127; 96160 ==

== ENCOUNTER 2024-06-23 15:42 | Outpatient (AMB) | payer OTHER, MEDICAID, SELFPAY ==
--- NOTE | 2024-06-23 15:45 | MHC.OFFVIS ---
Intake Visit Reasons: telehealth for lab order. Norma's pt. Telegraphic Instrument Supervisor Required: No Allergies alcohol Allergy (Severe, Verified 11/06/23 11:06) asthma acetaminophen [From VICODIN] Allergy (Unknown, Verified 11/06/23 11:06) ITCHY/NAUSEOUS Cephalosporins [CEPHALOSPORINS] Allergy (Unknown, Verified 11/06/23 11:06) RASH codeine [CODEINE] Allergy (Unknown, Verified 11/06/23 11:06) ITCHY/NAUSEOUS sumatriptan [From IMITREX] Allergy (Unknown, Verified 11/06/23 11:06) HEAD FELT ON FIRE From VICODIN Allergy (Unknown, Uncoded 08/22/20 17:58) ITCHY/NAUSEOUS Is last menstrual period known: No Post menopausal: No Patient : No HPI HPI telehealth for lab order. Norma's pt.: Details: Patient is a 34-year-old female with a significant past medical history of bipolar disorder, anxiety, ADHD, schizophrenia, depression presenting today with concerns of abdominal bloating and amenorrhea. She states that recently family members, friends and even her psychiatrist pointed out that her abdomen looked distended. She states that people have said things like ?are you sure you are not ??. She states that she has chronic constipation and that when she has an exacerbation of her constipation the bloating does get worse. It does not appear to be affected by food. There is no pain in her abdomen. No nausea or vomiting. She does not get a menses as she is on control pills. Reports compliance with the medication. Has taken at home negative test but is stressed out about this and would like a test to make sure she is not . She denies any alcohol use. No weight loss or changes in weight. [facility] Medical History (Updated 06/23/24 @ 15:18 by Teetee Covington PA-C) Schizophrenia Bipolar 1 disorder Anxiety and depression Kidney stones Chronic GERD ADHD Asthma Breast lump Surgical History (Updated 11/06/23 @ 11:03 by Cmaille Logan MA) H/O hemorrhoidectomy H/O cone biopsy of cervix Family History (Updated 11/06/23 @ 11:06 by Camille Logan MA) Mother Mental health disorder Skin cancer Father Substance abuse Maternal Grandmother Skin cancer Paternal Grandfather Skin cancer Social History (Updated 11/06/23 @ 10:54 by Camille Logan MA) Household Members: None Housing: Apartment Are you a primary acute care surgeon to a significant other at home: No Do you presently have visiting nurse or other home services: No Alcohol intake: never Patient Tobacco Use Status: Current everyday Tobacco user Cigarettes Per Day: 5 Years Smoked: 10 e-Cigarette/Vaping Use: Never Used Second Hand Smoke Exposure: No Substance Use Type: Marijuana Current occupational status: unemployed Cognitive needs: No Hearing needs: No Vision needs: No Telehealth Telehealth Telehealth Platform: Telephone Location of provider rendering services: practice address Location of patient: address on file Patient Identification confirmed using: Name, : Yes Telehealth method: voice only Patient verbally consented to treatment: Yes Patient verbally consented to billing insurance company: Yes Patient informed of any privacy concerns related to visit: Yes Minutes spent on Phone/Video with Pt.: 16 Assessment & Plan Assessment & Plan (1) Amenorrhea: Code(s): N91.2 - Amenorrhea, unspecified Category: Medical Plan: HCG ordered. (2) Chronic constipation: Code(s): K59.09 - Other constipation Category: Medical Plan: Currently managed with stool softeners. Encouraged her to get enough fiber, drink fluids and to walk. Advised to complete labs. I have advised her to return for an exam in person with her PCP. Discussed that if symptoms change possible consultation to GI (3) Abdominal bloating: Code(s): R14.0 - Abdominal distension (gaseous) Category: Medical Plan: As listed above. Abdominal ultrasound ordered Orders: Orders Hemoglobin A1c Today K59.09 - Other constipation, N91.2 - Amenorrhea, unspecified, R14.0 - Abdominal distension (gaseous), R73.01 - Impaired fasting glucose TSH reflex Free T4 Today K59.09 - Other constipation, N91.2 - Amenorrhea, unspecified, R14.0 - Abdominal distension (gaseous) US abdomen complete Today K59.09 - Other constipation, N91.2 - Amenorrhea, unspecified, R14.0 - Abdominal distension (gaseous) Complete Blood Count Auto Diff Today K59.09 - Other constipation, N91.2 - Amenorrhea, unspecified, R14.0 - Abdominal distension (gaseous) Basic Metabolic Panel Today K59.09 - Other constipation, N91.2 - Amenorrhea, unspecified, R14.0 - Abdominal distension (gaseous) Liver Panel Today K59.09 - Other constipation, N91.2 - Amenorrhea, unspecified, R14.0 - Abdominal distension (gaseous) HCG Quantitative Today K59.09 - Other constipation, N91.2 - Amenorrhea, unspecified, R14.0 - Abdominal distension (gaseous) Coding Level of Care Code Tele Est Pt Level 3 (60206) Diagnoses Amenorrhea N91.2 Chronic constipation K59.09 Abdominal bloating R14.0
== END 2024-06-23 15:49 | disposition home or self-care (01) ==
LOC: HO.HMCFM 15:42
PROVIDERS: PCP Nurse Practitioner Family; Visit Provider Physician Assistant
DX: N91.2 Amenorrhea, unspecified (principal); K59.09 Other constipation; R14.0 Abdominal distension (gaseous)

== ENCOUNTER → 2024-06-23 15:42 | Outpatient (BNVA) | payer OTHER, MEDICAID, SELFPAY | PROVIDERS: PCP Nurse Practitioner Family; Visit Provider Physician Assistant | DX: K59.09 Other constipation (principal); R14.0 Abdominal distension (gaseous); N91.2 Amenorrhea, unspecified ==

== ENCOUNTER 2024-06-23 15:44 | Outpatient (REF) | payer OTHER, MEDICAID, SELFPAY ==
--- OUTSIDE RECORDS SUMMARY | 2024-06-23 16:10 | XMS_ITS | Patient Health Record ---
Author Organization [facility] Address [address] [place] [address] Care Team Providers Care Pouncer Name Role Phone ZULY WINTERS N.P. Primary Care Provider Amy nieto Minda De La Cruz Unavailable [phone] Allergies Allergen (clinical drug ingredient) Drug/Non Drug Allergy documented on EMR Reaction Allergy Type Onset Date Status Cefzil rash Drug Allergy Active sumatriptan Imitrex head on fire Drug Allergy Active Vicodin itchy/nausea Drug Allergy Acti ve Reason For Referral No Information Medications Medication SIG (Take, Route, Fr equency, Duration) Notes Start Date End Date Status Trileptal 600 MG Orally per day Active Eliquis 10 mg Orally Active Adderall 20 MG 1 tablet Orally once a day Active Wellbutrin 300 mg Ac tive clonazePAM 1.5mg Act rasta miSOPROStol 200 MCG 2 tablets Orally nig ht before procedure for 1 days 11/11/2017 Active Social History Tobacco Use: Social History Observation Description Date Details (start date - stop date) Former Smoker NA - NA Tobacco Use/Smoking Question Answer Notes Are you a former smoker How long has it been since you last smoked? 1-5 years Alcohol Screen (Audit-C) Question Answer Notes Did you have a drink contain ing alcohol in the past year? Yes How often did you have a dri nk containing alcohol in the past year? Monthly or less (1 point) How many drinks did you have on a typical day when you were drinking in the past year? 1 or 2 drinks (0 point) Points 1 Tobacco use other than smoking: Question Answer Notes Are you an other tobacco user? No Problems Problem Type SNOMED Code ICD Code Onset Dates Problem Status W/U Status Risk Notes Problem Hypothyroidism, unspecified (E03.9) Active confirmed Problem Major depression, single episode (12947506) Major depressive disorder, single episode, unspecified (F32.9) Active confirmed Problem Anxiety disorder (459416137) Anxiety disorder, unspecified (F41.9) Active confirmed Problem Migraine without aura, not refractory (disorder) (329516680) Migraine, unspecified, not intractable, without status migrainosus (G43.909) Active confirmed Problem Uncomplicated asthma (disorder) (091086665) Unspecified asthma, uncomplicated (J45.909) Active confirmed Problem Attention deficit hyperactivity disorder, predominantly inattentive type (disorder) (40132688) Attention and concentration deficit (R41.840) Active confirmed Plan Of Treatment Pending Test Test Name Order Date THIN PREP,HPV IF ASCUS, CT/GC (21-29YR) 11/11/2017 Insurance Providers Payer Name Payer Address Payer Phone Subscriber Number Group Number Insured Name Patient Relationship to Insured Coverage Start Date Coverage End Date MEDICARE [address] [facility], [place] [id number] RAMONA GILL Self - patient is the insured Medical (General) History Medical History History ICD Code Attention and concentration deficit R41. 840 Anxiety disorder, unspecified F41.9 Unspecified asthma, uncomplicated J45.90 9 Migraine, unspecified, not intractable, without status migrainosus G43.909 Hypothyroidism, now resolved Depression, possibly bipolar disorder Surgical History Surgery Date(Month/Year) Cone Biopsy Cervix 2007 Hospitalization History Reason Date(Month/Year) See Surgical Hx
[2024-06-23 17:38] LABS: MANUAL DIFF FLAG NO
[2024-06-23 17:54] LABS: Basophils Absolute Auto 0.1 X10*3/uL (0.0-0.2); Basophils Percent Auto 0.7 % (0-2); Eosinophils Absolute Auto 0.3 X10*3/uL (0.0-0.4); Eosinophils Percent Auto 2.6 % (0-4); Hemoglobin 13.8 g/dl (12.0-16.0); Imm Gran Abs Auto 0.06 X10*3/uL (0.00-0.03); Imm Gran Pct Auto 0.6 % (0.0-0.4); Lymphocytes Absolute Auto 3.1 X10*3/uL (1.2-4.9); Lymphocytes Percent Auto 29.1 % (20-40); Mean Corpuscular HGB Conc 32.9 g/dl (31.0-35.0); Mean Corpuscular Hemoglobin 26.7 pg (27.0-33.0); Mean Corpuscular Volume 81.2 fL (80.0-98.0); Mean Platelet Volume 9.6 fL (9.4-12.3); Monocytes Absolute Auto 0.7 X10*3/uL (0.1-1.2); Monocytes Percent Auto 6.8 % (2-11); Neutrophils Absolute Auto 6.4 x10*3/uL (2.0-8.3); Neutrophils Percent Auto 60.2 % (45-73); Platelet Count 389 X10*3/uL (160-400); Red Blood Count 5.17 X10*6/uL (4.20-5.50); Red Cell Distribution Width 15.3 % (11.0-16.0); White Blood Count 10.6 X10*3/uL (4.8-10.8)
[2024-06-23 18:10] LABS: Alanine Aminotransferase 42 U/L (0-31); Albumin Level 4.1 g/dL (3.5-5.0); Alkaline Phosphatase 122 U/L (39-117); Anion Gap 15 (12-20); Aspartate Amino Transferase 32 U/L (5-31); Bilirubin Direct 0.1 mg/dL (0.0-0.5); Bilirubin Total 0.3 mg/dL (0.0-1.0); Blood Urea Nitrogen 11 mg/dL (9-16); Calcium 9.5 mg/dL (8.4-10.2); Carbon Dioxide 26 mmol/L (22-29); Chloride 103 mmol/L (96-108); Estimated Glomerular Filt Rate > 60; Glucose Random 209 mg/dL (60-115); Potassium 4.1 mmol/L (3.3-5.1); Sodium 140 mmol/L (135-145); Total Protein 7.3 g/dL (6.5-8.0)
[2024-06-23 18:20] LABS: HCG Quantitative < 2 mIU/mL; TSH reflex Free T4 0.49 uIU/mL (0.32-4.0)
[2024-06-24 06:19] LABS: Estimated Average Glucose 143 mg/dL; Hemoglobin A1C 172.6008 umol/L; Hemoglobin A1c % 6.6 % (<6.0); Total Hemoglobin (HGBA1C) 3574.3959 umol/L
== END 2024-06-23 15:45 | disposition home or self-care (01) ==
LOC: HO.WFDLDS 15:44
PROVIDERS: Visit Provider Physician Assistant
DX: N91.2 Amenorrhea, unspecified (principal); R14.0 Abdominal distension (gaseous); K59.09 Other constipation; R73.01 Impaired fasting glucose
CPT/HCPCS: 36415; 80048; 80076; 83036; 84443; 84702; 85025

== ENCOUNTER 2024-07-26 13:15 | Outpatient (REF) | payer OTHER, MEDICAID, SELFPAY ==
--- NOTE | ~2024-07-26 | US_ITS ---
EXAMINATION: US ABDOMEN COMPLETE CLINICAL INFORMATION: Abdominal bloating. COMPARISON: None available. TECHNIQUE: Real-time imaging of the abdominal viscera. FINDINGS: PANCREAS: Visualized portions are unremarkable. ABDOMINAL AORTA: The proximal, mid, and distal segments are normal in caliber. INFERIOR VENA CAVA: Visualized portions are normal. LIVER: The liver is normal in size. The liver contour is normal. Parenchymal echogenicity is increased. No focal hepatic lesion. There is no intrahepatic biliary duct dilatation seen. GALLBLADDER: The gallbladder is physiologically distended without evidence of stones, sludge, polyps, or pericholecystic fluid. Borderline gallbladder wall thickening measuring 0.28 cm. COMMON BILE DUCT: Normal in caliber measuring 0.44 cm in diameter. RIGHT KIDNEY: No hydronephrosis. No renal calculi or focal parenchymal lesions. The kidney measures 13.1 cm in maximum dimension. LEFT KIDNEY: No hydronephrosis. No renal calculi or focal parenchymal lesions. The kidney measures 13.3 cm in maximum dimension. SPLEEN: The spleen measures 11.8 cm in maximum dimension. FREE FLUID: None. US/US abdomen complete IMPRESSION: Mild hepatomegaly with increased echogenicity but no focal lesion seen. Rest of the abdominal ultrasound is unremarkable. Electronically signed by: Bethel Lamar MD 07/26/2024 02:08 PM EDT
--- OUTSIDE RECORDS SUMMARY | 2024-07-26 15:42 | XMS_ITS | Patient Health Record ---
Author Organization [facility] Address [address] [place] [address] Care Team Providers Care Concert Pianist Name Role Phone ZULY WINTERS N.P. Primary Care Provider Amy nieto Minda De La Cruz Unavailable [phone] Allergies Allergen (clinical drug ingredient) Drug/Non Drug [...] Problem Status W/U Status Risk Notes Problem Hypothyroidism (25396404) Hypothyroidism, unspecified (E03.9) Active confirmed Problem Major depression, single episode (11384873) Major depressive disorder, single episode, unspecified (F32.9) Active confirmed Problem Anxiety disorder (141679994) Anxiety disorder, unspecified (F41.9) Active confirmed Problem Migraine without aura, not refractory (disorder) (092270904) Migraine, unspecified, not intractable, without status migrainosus (G43.909) Active confirmed Problem Uncomplicated asthma (disorder) (919268875) Unspecified asthma, uncomplicated (J45.909) Active confirmed Problem Attention deficit hyperactivity disorder, predominantly inattentive type (disorder) (01029625) Attention and concentration deficit (R41.840) Active confirmed Plan Of Treatment Pending Test Test Name Order Date THIN PREP,HPV IF ASCUS, CT/GC (21-29YR) 11/11/2017 Insurance Providers Payer Name Payer Address Payer Phone Subscriber Number Group Number Insured Name Patient Relationship to Insured Coverage Start Date Coverage End Date MEDICARE [address] [facility], [place] [id number] RAMONA GILL Self - patient is the [...]
== END 2024-07-26 13:16 | disposition home or self-care (01) ==
LOC: HO.HMGCX 13:15
PROVIDERS: PCP Nurse Practitioner Family; Visit Provider Physician Assistant
DX: N91.2 Amenorrhea, unspecified (principal); R14.0 Abdominal distension (gaseous); K59.09 Other constipation
CPT/HCPCS: 76700

== ENCOUNTER → 2024-07-26 13:18 | Outpatient (BNV) | payer OTHER, MEDICAID, SELFPAY | PROVIDERS: PCP Nurse Practitioner Family; Visit Provider Radiology Diagnostic Radiology | DX: R14.0 Abdominal distension (gaseous) (principal) | CPT/HCPCS: 76700 ==

== ENCOUNTER 2024-08-11 11:54 | Outpatient (AMB) | payer OTHER, MEDICAID, SELFPAY ==
--- NOTE | 2024-08-11 12:29 | MHC.PC.OV ---
Vital Signs 08/11/24 12:31 Height 5 ft 4 in Weight 234 lb 4 oz BMI 40.2 BP 118/68 Blood Pressure Location Lt brachial Position Sitting Respiration 12 Pulse 103 H Pulse Source Pulse Oximeter Temp 97.1 F Temp Source Oral Pulse Oximetry (%) 95 Oxygen Delivery Method Room Air Intake Visit Reasons: Liver FU Intake Note: Follow up on liver Operations Inspector Required: No Allergies alcohol Allergy (Severe, Verified 08/11/24 12:31) asthma acetaminophen (From VICODIN) Allergy (Unknown, Verified 08/11/24 12:31) ITCHY/NAUSEOUS Cephalosporins (CEPHALOSPORINS) Allergy (Unknown, Verified 08/11/24 12:31) RASH codeine (CODEINE) Allergy (Unknown, Verified 08/11/24 12:31) ITCHY/NAUSEOUS sumatriptan (From IMITREX) Allergy (Unknown, Verified 08/11/24 12:31) HEAD FELT ON FIRE From VICODIN Allergy (Unknown, Uncoded 08/11/24 12:31) ITCHY/NAUSEOUS Medication List - Last Reconciled 08/11/24 by SHAHRZAD WoodwardP- albuterol sulfate 90 mcg/actuation 2 inhalations inhalation Q6H PRN clonazepam mg PO clozapine 300 mg PO DAILY dextroamphetamine-amphetamine 20 mg ER 1 cap PO QAM docusate sodium (Colace) 100 mg PO BID PRN fluticasone propionate 50 mcg/actuation 2 sprays intranasal BID glycopyrrolate mg PO omeprazole 20 mg PO DAILY risperidone mg PO Tobacco use date assessed: 08/11/24 Dental Screening Dental Screen Date: 08/11/24 Did you have a dental visit in the last 12 months?: Yes Did you have a dental problem in the last 6 months where you did not have access to dental care?: No Was dental information given to patient?: Patient has dentist HPI HPI Comments History of Present Illness Details 34-year-old female with bipolar 1 disorder, schizophrenia, generalized anxiety disorder, major depressive disorder, chronic GERD, ADHD, mild intermittent asthma, renal stones, current tobacco dependence, obesity, self-reported pre melanoma on right hip Status post cone biopsy of her cervix, hemorrhoidectomy, several skin lesions removed, left breast abscess drainage Several psychiatric hospitalizations Health Maintenance: ? 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 - Visit w/ my colleague for this 06/2024, note reviewed . - Lab results show elevated liver enzymes and prediabetes (A1c of 6.6%). - Ultrasound reveals gallbladder wall thickening and hepatomegaly. - Constipation slightly improved,using OTC meds - Referred to [facility] first appt Fall 2024 - Active gym participation. - Has a wart like lesion bottom of L foot would like to see podiatry Review of Systems - Gastrointestinal: Reports abdominal bloating and constipation. - Endocrine: Reports elevated glucose. - Dermatologic: Reports a lesion on the foot, possibly a wart or callus. Physical Exam General: Well developed, well nourished, in no acute distress. Appears stated age. Head: Normocephalic, atraumatic. Eyes: Pupils are equal, round and reactive to light and accommodation. Scleras nonicteric bilat Lungs: Clear to auscultation bilaterally. No rales, rhonchi or wheeze noted. Good air flow in all starr. Heart: Regular rhythm. Mild tachy - baseline No murmurs, click, rubs or gallops are noted. Abdomen: Bowel sounds present in all quadrants. The abdomen semifirm, protrubent, tender generally speaking w/o rebound or peritoneal signs Extremities: R great toe calloused Psych: Mood and affect appropriate Diagnostic results Mild hepatomegaly with increased echogenicity but no focal lesion seen. 07/26/24 Results - Labs: Normal CBC, elevated random glucose of 209 mg/dL, A1c of 6.6%, normal calcium, elevated liver enzymes, normal TSH, negative test. - Imaging: Abdominal ultrasound showed gallbladder wall thickening and hepatomegaly. Discussion Notes I reviewed the patient's lab results, which indicated elevated liver enzymes and prediabetes based on an A1c of 6.6%. An abdominal ultrasound revealed gallbladder wall thickening and an enlarged liver. I explained these results. The patient is near the threshold for diabetes, and I emphasized the importance of dietary management. We discussed the referral to gastroenterology. She would like to start Ozempic. Podiatry referral placed per request. Assessment and Plan 1. Abdominal bloating and constipation - Gastroenterology referral in place. - Emphasize exercise and dietary management. - Additional labs ordered. 2. Elevated liver enzymes - Gallbladder thickening noted. - Evaluate further with gastroenterology. - No history of hepatitis exposure. 3. Prediabetes - referral for management. - Education on lifestyle/dietary change. 4. Callous R great toe - Podiatry referral submitted. Patient Instructions - Follow up with radar engineer as scheduled. - Maintain regular exercise and focus on a balanced diet with low sugar. - Complete additional labs as ordered. RTO SEPT CPE SOONER PRN Consent Patient was informed and verbally consented to the use of an ambient scribe for clinic note documentation during this visit. Total time spent caring for the patient today was 30 minutes. This includes time spent before the visit reviewing the chart, time spent during the visit, and time spent after the visit on documentation, reviewing laboratory results, diagnostic imaging, medications, performing a medically necessary evaluation, counseling on diagnoses, care coordination, ordering appropriate tests, ordering appropriate medications, review of tests performed by other providers, reporting test results with the patient, communication with other healthcare providers. [facility] Medical History (Updated 08/11/24 @ 13:08 by Norma Weiner [facility]) ADHD Anxiety and depression Asthma Bipolar 1 disorder Breast lump Chronic GERD Kidney stones Schizophrenia Surgical History (Updated 11/06/23 @ 11:03 by Camille Logan MA) H/O cone biopsy of cervix H/O hemorrhoidectomy Family History (Updated 11/06/23 @ 11:06 by Camille Logan MA) Mother Mental health disorder Skin cancer Father Substance abuse Maternal Grandmother Skin cancer Paternal Grandfather Skin cancer Social History (Updated 11/06/23 @ 10:54 by Camille Logan MA) Household Members: None Housing: Apartment Are you a primary healthcare insurance sales agent to a significant other at home: No Do you presently have visiting nurse or other home services: No 75 years or older and lives alone: No Alcohol intake: never Patient Tobacco Use Status: Current everyday Tobacco user Cigarettes Per Day: 5 Years Smoked: 10 e-Cigarette/Vaping Use: Never Used Second Hand Smoke Exposure: No Substance Use Type: Marijuana Current occupational status: unemployed Cognitive needs: No Hearing needs: No Vision needs: No Questionnaire PHQ-9 Over the last 2 weeks, how often have you been bothered by any of the following problems? 1. Little interest or pleasure in doing things: not at all 2. Feeling down, depressed, or hopeless: not at all 3. Trouble falling or staying asleep, or sleeping too much: not at all 4. Feeling tired or having little energy: not at all 5. Poor appetite or overeating: not at all 6. Feeling bad about yourself - or that you are a failure or have let yourself or your family down: not at all 7. Trouble concentrating on things, such as reading the newspaper or watching television: not at all 8. Moving or speaking so slowly that other people could have noticed. Or the opposite - being so fidgety or restless that you have been moving around a lot more than usual: not at all 9. Thoughts that you would be better off or of hurting yourself in some way: not at all Total score: 0 Depression Screening Interpretation: Negative Depression Screening Done: Yes 85776 - PHQ-9 Billing: Yes Source: Developed by Drs. Marvin Lazo, Jennifer Wooten, Raymundo Grayson and colleagues, with an educational bebeto from [employer]. Thrive Questionnaire Date Thrive assessed: 08/11/24 I am a: Patient What is your living situation today?: I have a steady place to live Within the past 12 months, did the food you bought not last and you didn't have the money to get more?: I choose not to answer this question Within the past 12 months, did you worry whether your food would run out before you got money to buy more?: Never true Do you have trouble paying for medicines?: No Do you have trouble getting transportation to medical appointments?: I choose not to answer this question Do you have trouble paying your heating and electricity bill?: No Do you have trouble taking care of your child, family member or friend?: No Do you have trouble with day-to-day activities such as bathing, preparing meals, shopping, managing finances, etc.?: No Are you currently unemployed and looking for a job?: No Are you interested in more education?: No Please select the resources that you would like help with: None Currently or been in a relationship where the following occur: I choose not to answer THRIVE Score: 0 AUDIT C Alcohol Use Questionnaire (AUDIT-C) 1. How often do you have a drink containing alcohol?: Never 3. How often do you have six or more drinks on one occasion?: Never Total Score: 0 CHAIM-7 AMB Questionnaire CHAIM-7 Date CHAIM - 7 assessed: 08/11/24 Feeling nervous, anxious, or on edge: 0 = Not at all Not being able to stop or control worryin = Not at all Worrying too much about different things: 0 = Not at all Trouble relaxin = Not at all Being so restless that it is hard to sit still: 0 = Not at all Becoming easily annoyed or irritable: 0 = Not at all Feeling afraid as if something awful might happen: 0 = Not at all Total CHAIM-7 score (0-4 normal; 5-9 mild; 10-14 moderate; 15-21 severe): 0 Source: Developed by Drs. Marvin Lazo, Jennifer Wooten, Raymundo Grayson and colleagues, with an educational bebeto from [employer]. CHAIM-7 Assessment Billing CHAIM-7 Assessment Tool: CHAIM-7 Assessment 04565 Physical exam (Primary Care) Vital Signs: Last Vital Signs Temp 97.1 F 08/11/24 12:31 Pulse 13 L 08/11/24 12:31 Resp 12 08/11/24 12:31 BP 118/68 08/11/24 12:31 Pulse Ox 95 08/11/24 12:31 Oxygen Delivery Method Room Air 08/11/24 12:31 BMI result Body Mass Index 40.2 BMI Assessment/Plan discussion: High BMI High, discussed plan: lifestyle Tobacco/Smoking Status: Tobacco use Status Tobacco use date assessed 08/11/24 08/11/24 12:34 Patient Tobacco Use Status Current everyday Tobacco 08/11/24 12:33 e-Cigarette/Vaping Use Never Used 08/11/24 12:33 Are you ready to quit: No Tobacco cessation counseling provided: Yes Items discussed: Nicotine replacement Relapse Prevention: discussed the importance of a supportive environment, discussed extending NRT, discussed negative mood or depression after quitting, weight gain after smoking is common and discussed dietary, exercise and/or lifestyle changes CPT code: 69342 - 4-10 Minutes PHQ-9: PHQ-9 Score PHQ-9: Total score 0 08/11/24 12:34 Depression Screening Interpretation: Negative Thrive Assessment: Date of Thrive Assessment Date Thrive assessed 08/11/24 08/11/24 12:34 Currently or been in a relationship where the following occur: I choose not to answer Const Other: General: Well developed, well nourished, in no acute distress. Appears stated age. Head: Normocephalic, atraumatic. Eyes: Pupils are equal, round and reactive to light and accommodation. Conjunctivae are clear. Vision grossly normal. Ears: TMs clear AU, EACS WNL Nose: Patent, without discharge. Mouth: There are no ulcers or lesions noted. No inflammation, no post nasal drip, no plaques nor exudates. Neck: Supple, no adenopathy or thyromegaly. Lungs: Clear to auscultation bilaterally. No rales, rhonchi or wheeze noted. Good air flow in all starr. Heart: Regular rate and rhythm. No murmurs, click, rubs or gallops are noted. Abdomen: Bowel sounds present in all quadrants. The abdomen is soft, nontender, with no masses or organomegaly noted. No hernias are noted. Musculoskeletal: Joints are nontender, without swelling, redness, or effusions. Range of motion is observed to be normal. Pulses: Peripheral pulses are equal and palpable bilaterally. Extremities: No clubbing, cyanosis nor edema is noted. Neurologic: Gait and station normal. Cranial Nerves 2-12 intact. Motor strength grossly symmetrical and intact. No sensory loss. Balance normal. Skin: No rashes, ulcers, or lesions noted. Turgor is good. Skin color is good. Hair and nails are without abnormalities. Psych: Normal eye contact, affect and mood appropriate, and normal interactions. Patient is alert and appropriate to context. Coding Level of Care Code Est Pt Level 4 (21654) Complex EM visit Add On G2211 Diagnoses Hepatomegaly R16.0 Elevated LFTs R79.89 Callus of foot L84 Prediabetes R73.03 Obesity, morbid, BMI 40.0-49.9 E66.01 Chronic constipation K59.09 Abdominal bloating R14.0 Tobacco dependence F17.200 Additional Codes CHAIM-7 Assessment Billing - CHAIM-7 Assessment Tool: CHAIM-7 Assessment 20292 ([id number]) PHQ-9 - 46187 - PHQ-9 Billing: Yes ([id number]) Vital Signs *Quality* - CPT code: 89708 - 4-10 Minutes ([id number]) Assessment & Plan Assessment & Plan (1) Hepatomegaly: Code(s): R16.0 - Hepatomegaly, not elsewhere classified Category: Medical (2) Elevated LFTs: Code(s): R79.89 - Other specified abnormal findings of blood chemistry Category: Medical (3) Callus of foot: Code(s): L84 - Corns and callosities Category: Medical (4) Prediabetes: Code(s): R73.03 - Prediabetes Category: Medical (5) Obesity, morbid, BMI 40.0-49.9: Code(s): E66.01 - Morbid (severe) obesity due to excess calories Category: Medical (6) Chronic constipation: Code(s): K59.09 - Other constipation Category: Medical (7) Abdominal bloating: Code(s): R14.0 - Abdominal distension (gaseous) Category: Medical (8) Tobacco dependence: Code(s): F17.200 - Nicotine dependence, unspecified, uncomplicated Category: Medical Plan . Orders: Orders Liver Fibrosis Pnl Today R16.0 - Hepatomegaly, not elsewhere classified, R79.89 - Other specified abnormal findings of blood chemistry Hepatitis A,B,C Profile Today R16.0 - Hepatomegaly, not elsewhere classified, R79.89 - Other specified abnormal findings of blood chemistry Referrals Podiatry Referral L84 - Corns and callosities Medical Weight Management Referral E66.01 - Morbid (severe) obesity due to excess calories, R73.03 - Prediabetes
[2024-08-11 12:31] VITALS: BP 118/68; PULSE 103; RESP 12; TEMP 36.2; O2SAT 95; BMI 40.2
--- OUTSIDE RECORDS SUMMARY | 2024-08-11 14:18 | XMS_ITS | Patient Health Record ---
Author Organization [facility] Address [address] [place] [address] Care Team Providers Care Nuclear Fuel Enrichment Technician Name Role Phone ZULY WINTERS N.P. Primary Care Provider Amy nieto Minda De La Cruz Unavailable [phone] Allergies Allergen (clinical drug ingredient) Drug/Non Drug [...] MCG 2 tablets Orally nig ht before procedure; Duration: 1 days 11/11/2017 Acti ve Social History Tobacco Use: Social History Observation [...] Active confirmed Problem Major depression, single episode (90868202) Major depressive disorder, single episode, unspecified (F32.9) Active confirmed Problem Anxiety disorder (401625958) Anxiety disorder, unspecified (F41.9) Active confirmed Problem Migraine without aura, not refractory (disorder) (770158591) Migraine, unspecified, not intractable, without status migrainosus (G43.909) Active confirmed Problem Uncomplicated asthma (disorder) (660749342) Unspecified asthma, uncomplicated (J45.909) Active confirmed Problem Attention deficit hyperactivity disorder, predominantly inattentive type (disorder) (91032519) Attention and concentration deficit (R41.840) Active confirmed Plan Of Treatment Pending Test Test Name Order Date THIN PREP,HPV IF ASCUS, CT/GC (21-29YR) 11/11/2017 Insurance Providers Payer Name Payer Address Payer Phone Subscriber Number Group Number Insured Name Patient Relationship to Insured Coverage Start Date Coverage End Date MEDICARE [address] [facility], [place] [id number] [phone] [id number] RAMONA GILL Self - patient is the [...]
== END 2024-08-11 13:14 | disposition home or self-care (01) ==
LOC: HO.HMCFM 11:54
PROVIDERS: PCP Nurse Practitioner Family; Visit Provider Nurse Practitioner Family
DX: R73.03 Prediabetes (principal); E66.01 Morbid (severe) obesity due to excess calories; Z68.41 Body mass index [BMI] 40.0-44.9, adult; R16.0 Hepatomegaly, not elsewhere classified; R79.89 Other specified abnormal findings of blood chemistry; L84 Corns and callosities; K59.09 Other constipation; R14.0 Abdominal distension (gaseous); F17.200 Nicotine dependence, unspecified, uncomplicated

== ENCOUNTER → 2024-08-11 11:54 | Outpatient (BNVA) | payer OTHER, MEDICAID, SELFPAY | PROVIDERS: PCP Nurse Practitioner Family; Visit Provider Nurse Practitioner Family | DX: K21.9 Gastro-esophageal reflux disease without esophagitis (principal); F31.9 Bipolar disorder, unspecified; F20.9 Schizophrenia, unspecified; F41.9 Anxiety disorder, unspecified; F90.9 Attention-deficit hyperactivity disorder, unspecified type; J45.20 Mild intermittent asthma, uncomplicated; E66.9 Obesity, unspecified; K59.00 Constipation, unspecified; R73.03 Prediabetes; L84 Corns and callosities; R16.0 Hepatomegaly, not elsewhere classified; R79.89 Other specified abnormal findings of blood chemistry; E66.01 Morbid (severe) obesity due to excess calories; K59.09 Other constipation; R14.0 Abdominal distension (gaseous); F17.200 Nicotine dependence, unspecified, uncomplicated; Z68.41 Body mass index [BMI] 40.0-44.9, adult | CPT/HCPCS: 96127 ==

== ENCOUNTER 2024-08-11 13:28 | Outpatient (REF) | payer OTHER, MEDICAID, SELFPAY ==
[2024-08-12 08:43] LABS: HBS Num1 46.68 mIU/mL (0-7.99); HBc Num1 0.18 S/CO (0.00-0.79); HBsAGNum1 0.37 S/CO (0.00-0.99); Hepatitis A Antibody IgM 0.21 Index (0-0.79); Hepatitis B Core Antibody Nonreactive (Nonreactive); Hepatitis B Surface Antigen Negative (Negative); ~HepC Num1 0.17 S/CO (0.00-0.79); ~Hepatitis A Antibody IgM Nonreactive (Nonreactive); ~Hepatitis B Surface Antibody REACTIVE (Nonreactive); ~Hepatitis C Antibody Nonreactive (Nonreactive)
[2024-08-22 01:54] LABS: FIB-ALT 60 U/L (6-29); FIB-Alpha-2-Macroglobulin 184 mg/dL (106-279); FIB-Apolipoprotein A1 134 mg/dL (101-198); FIB-GGT 37 U/L (3-50); FIB-Haptoglobin 300 mg/dL (43-212); FIB-Total Bilirubin 0.3 mg/dL (0.2-1.2); Liver Fibrosis Score 0.06; Liver Fibrosis Stage F0; Nec Inflam Act Grade A0-A1; Nec Inflam Act Score 0.28
== END 2024-08-11 13:29 | disposition home or self-care (01) ==
LOC: HO.WFDLDS 13:28
PROVIDERS: Visit Provider Nurse Practitioner Family
DX: R16.0 Hepatomegaly, not elsewhere classified (principal); R79.89 Other specified abnormal findings of blood chemistry
CPT/HCPCS: 36415; 81596; 86704; 86706; 86709; 86803; 87340

== ENCOUNTER 2024-11-09 11:23 | Outpatient (AMB) | payer MEDICAID, SELFPAY ==
--- NOTE | 2024-11-09 11:27 | A.OFFPC_ITS ---
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: No Allergies alcohol Allergy (Severe, Verified 11/09/24 11:41) asthma acetaminophen (From VICODIN) Allergy (Unknown, Verified 11/09/24 11:41) ITCHY/NAUSEOUS Cephalosporins (CEPHALOSPORINS) Allergy (Unknown, Verified 11/09/24 11:41) RASH codeine (CODEINE) Allergy (Unknown, Verified 11/09/24 11:41) ITCHY/NAUSEOUS sumatriptan (From IMITREX) Allergy (Unknown, Verified 11/09/24 11:41) HEAD FELT ON FIRE From VICODIN Allergy (Unknown, Uncoded 11/09/24 11:28) ITCHY/NAUSEOUS Medication List - Last Reconciled 11/09/24 by Norma Weiner, PRODUCT DEVELOPMENT DIRECTOR- albuterol sulfate 90 mcg/actuation 2 inhalations inhalation Q6H PRN clonazepam mg PO clozapine 300 mg PO DAILY dextroamphetamine-amphetamine 20 mg ER 1 cap PO QAM docusate sodium (Colace) 100 mg PO BID PRN fluticasone propionate 50 mcg/actuation 2 sprays intranasal BID glycopyrrolate mg PO omeprazole 20 mg PO DAILY risperidone mg PO Tobacco use date assessed: 11/09/24 Dental Screening Dental Screen Date: 11/09/24 Did you have a dental visit in the last 12 months?: No Did you have a dental problem in the last 6 months where you did not have access to dental care?: No Was dental information given to patient?: Patient has dentist HPI HPI Comments History of Present Illness Details 34-year-old female with bipolar 1 disord er, schizophrenia, generalized anxiety disorder, major depressive disorder, chronic GERD, ADHD, mild intermittent asthma, renal stones, current tobacco dependence, obesity, self- reported pre melanoma on right hip, prediabetes Status post cone biopsy of her cervix, hemorrhoidectomy, several skin lesions removed, left breast abscess drainage Several psychiatric hospitalizations Health Maintenance: ? 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 Tdap reports up-to-date in the last 10 years Flu 11/09/24 Specialists: [facility] family worker Service Net prescriber and counselor CORINAJesús who admins her meds twice per day, unsure of the agency GI - [place] app[place]2024 [place] [facility] - thinks she has appt - i dont see one on the schedule but the referral is open Wt mgmt at [facility] [place] scheduled 12/2024 History of Present Illness The patient is a 34-year-old female presenting with complete physical e xamination. Asthma: - Managed with albuterol; cont to smoke Seasonal Allergic Rhinitis: - Uses Flonase for management Gastroesophageal Reflux Disease (GERD)/Chronic constipation/hepatomegaly/GB wall thickening: - Treated with PPI - Chronic symptoms present - colace for constipation w/ effect - [place] [facility] [place] - initial visit - denies abd complaints Attention Deficit Hyperactivity Disorder (ADHD): - Medicated with meds by outside prescri palak Bipolar Disorder/schizophrenia - Ongoing psychiatric treatment Obesity: - BMI recorded at 41; has appt w/ wt mgm t at [facility]: Has a wart like lesion bottom of L foot would like to see podiatry See above Prediabetes exercising, due for a1c to be done today General: Well developed, well nourished, in no acute distress. Appears stated age. Head: Normocephalic, atraumatic. Eyes: Pupils are equal, round and reactive to light and accommodation. Conjunctivae are clear. Scleras nonicteric bilat, Vision grossly normal. Ears: TMs clear AU, EACS WNL Nose: Patent, without discharge. Mouth: There are no ulcers or lesions noted. No inflammation, no post nasal drip, no plaques nor exudates. Neck: Supple, no adenopathy or thyromegaly. Lungs: Clear to auscultation bilaterally. No rales, rhonchi or wheeze noted. Good air flow in all starr. Heart: Regular rhythm. Mild tachy - baseline No murmurs, click, rubs or gallops are noted. Abdomen: Bowel sounds present in all quadrants. The abdomen semifirm, protrubent, nontender, w/o rebound or peritoneal signs . Musculoskeletal: Joints are nontender, without swelling, redness, or effusions. Range of motion is observed to be normal. Pulses: Peripheral pulses are equal and palpable bilaterally. Extremities: No clubbing, cyanosis nor edema is noted. R great toe calloused Neurologic: Gait and station normal. Cranial Nerves 2-12 intact. Motor strength grossly symmetrical and intact. No sensory loss. Balance normal. Skin: No rashes, ulcers, or lesions noted. Turgor is good. Skin color is good. Hair and nails are without abnormalities. Large mole L ankle (reports bx and negative) Psych: Normal eye contact, affect and mood appropriate, and normal interactions. Patient is alert and appropriate to context. Diagnostic results Mild hepatomegaly with increased echogenicity but no focal lesion seen. 07/26/24 Results - Labs: Normal CBC, elevated random gluc ose of 209 mg/dL, A1c of 6.6%, normal calcium, elevated liver enzymes, normal TSH, negative test. - Imaging: Abdominal ultrasound showed g allbladder wall thickening and hepatomegaly. Discussion Notes I reviewed the patient's lab results, which indicated elevated liver enzymes and prediabetes based on an A1c of 6.6%. An abdominal ultrasound revealed gallbladde r wall thickening and an enlarged liver. I explained these results. The patient is near the threshold for diabetes, and I emphasized the importance of dietary management. We discussed the referral to gastroenterology. She would like to start Ozempic. Podiatry referral placed per request. Assessment and Plan 1. Asthma/tob use - Continue albuterol - smoking cessation - flu shot today 2. Seasonal Allergic Rhinitis - Maintain Flonase use 3. Attention Deficit Hyperactivity Disor cynthia (ADHD)/Bipolar Disorder/schizophrenia - Cont all meds - Follow psychiatric management 4. Obesity - Focus on diet, monitor weight - [facility] [place] Constipation/GERD/Hepatomegaly, etc. - Gastroenterology referral in place. - Emphasize exercise and dietary managem ent. - Cont PPI and colace Prediabetes - referral for management. - Education on lifestyle/dietary change. Callous R great toe - Podiatry referral active. Consent Patient was informed and verbally consented to the use of an ambient scribe for clinic note documentation during this visit. An additional 20 minutes was spent addressing the problem(s) noted at todays visit. This includes time spent before the visit reviewing the chart, time spent during the visit, and time spent after the visit on documentation reviewing laboratory results, diagnostic imaging, medications, performing a medically necessary evaluation, counseling on diagnoses, care coordination, ordering appropriate tests, ordering appropriate medications, review of tests performed by other providers, reporting test results with the patient, communication with other healthcare providers. [facility] Medical History (Updated 11/09/24 @ 11:47 by Norma Weiner [facility]) ADHD Anxiety and depression Asthma Bipolar 1 disorder Breast lump Chronic GERD Kidney stones Schizophrenia Surgical History (Updated 11/06/23 @ 11:03 by Camille Logan MA) H/O cone biopsy of cervix H/O hemorrhoidectomy Family History (Updated 11/06/23 @ 11:06 by Camille Logan MA) Mother Mental health disorder Skin cancer Father Substance abuse Maternal Grandmother Skin cancer Paternal Grandfather Skin cancer Social History (Updated 09/07/24 @ 15:11 by Mildred Ngo [employer]) Household Members: None Housing: Apartment Are you a primary care professionals to a significant other at home: No Do you presently have visiting nurse or other home services: No 75 years or older and lives alone: No Alcohol intake: never Patient Tobacco Use Status: Current everyday Tobacco user Cigarettes Per Day: 10 Years Smoked: 10 e-Cigarette/Vaping Use: Never Used Second Hand Smoke Exposure: No Substance Use Type: Marijuana Current occupational status: unemployed Cognitive needs: No Hearing needs: No Vision needs: No Questionnaire PHQ-9 Over the last 2 weeks, how often have you been bothered by any of the following problems? 1. Little interest or pleasure in doing things: not at all 2. Feeling down, depressed, or hopeless: not at all 3. Trouble falling or staying asleep, or sleeping too much: not at all 4. Feeling tired or having little energy: not at all 5. Poor appetite or overeating: not at all 6. Feeling bad about yourself - or that you are a failure or have let yourself or your family down: not at all 7. Trouble concentrating on things, such as reading the newspaper or watching television: not at all 8. Moving or speaking so slowly that other people could have noticed. Or the opposite - being so fidgety or restless that you have been moving around a lot more than usual: not at all 9. Thoughts that you would be better off or of hurting yourself in some way: not at all Total score: 0 Depression Screening Interpretation: Negative Depression Screening Done: Yes 48339 - PHQ-9 Billing: Yes Source: Developed by Drs. Marvin Lazo, Jennifer Wooten, Raymundo Grayson and colleagues, with an educational bebeto from [employer]. Thrive Questionnaire Date Thrive assessed: 11/09/24 I am a: Patient What is your living situation today?: I have a steady place to live Within the past 12 months, did the food you bought not last and you didn't have the money to get more?: I choose not to answer this question Within the past 12 months, did you worry whether your food would run out before you got money to buy more?: Never true Do you have trouble paying for medicines?: No Do you have trouble getting transportation to medical appointments?: I choose not to answer this question Do you have trouble paying your heating and electricity bill?: No Do you have trouble taking care of your child, family member or friend?: No Do you have trouble with day-to-day activities such as bathing, preparing meals, shopping, managing finances, etc.?: No Are you currently unemployed and looking for a job?: No Are you interested in more education?: No Please select the resources that you would like help with: None Currently or been in a relationship where the following occur: I choose not to answer THRIVE Score: 0 AUDIT C Alcohol Use Questionnaire (AUDIT-C) 1. How often do you have a drink containing alcohol?: Never 3. How often do you have six or more drinks on one occasion?: Never Total Score: 0 Score Reviewed/Action Taken: Yes CHAIM-7 AMB Questionnaire CHAIM-7 Date CHAIM - 7 assessed: 11/09/24 Feeling nervous, anxious, or on edge: 0 = Not at all Not being able to stop or control worryin = Not at all Worrying too much about different things: 0 = Not at all Trouble relaxin = Not at all Being so restless that it is hard to sit still: 0 = Not at all Becoming easily annoyed or irritable: 0 = Not at all Feeling afraid as if something awful might happen: 0 = Not at all Total CHAIM-7 score (0-4 normal; 5-9 mild; 10-14 moderate; 15-21 severe): 0 Source: Developed by Drs. Marvin Lazo, Jennifer Wooten, Raymundo Grayson and colleagues, with an educational bebeto from [employer]. CHAIM-7 Assessment Billing CHAIM-7 Assessment Tool: CHAIM-7 Assessment 31797 ACT Questionnaire In the past 4 weeks, how much of the time did your asthma keep you from getting as much done at work, school or at home?: None of the time During the past 4 weeks, how often have you had shortness of breath?: Not at all During the past 4 weeks, how often did your asthma symptoms wake you up at night or earlier than usual in the morning?: Not at all During the past 4 weeks, how often have you had to use your rescue inhaler or nebulizer medication?: Not at all How would you rate your asthma control during the past 4 weeks?: Completely controlled ACT Interpretation: Negative Score: 25 Physical exam (Primary Care) Vital Signs: Last Vital Signs Temp 97.2 F 11/09/24 11:31 Pulse 113 H 11/09/24 11:49 Resp 13 11/09/24 11:31 BP 112/56 L 11/09/24 11:49 Pulse Ox 94 11/09/24 11:31 Oxygen Delivery Method Room Air 11/09/24 11:31 BMI result Body Mass Index 41.0 BMI Assessment/Plan discussion: High BMI High, discussed plan: lifestyle Tobacco/Smoking Status: Tobacco use Status Tobacco use date assessed 11/09/24 11/09/24 11:30 Patient Tobacco Use Status Current everyday Tobacco 11/09/24 11:30 e-Cigarette/Vaping Use Never Used 11/09/24 11:30 Are you ready to quit: No Tobacco cessation counseling provided: Yes Items discussed: Nicotine replacement Relapse Prevention: discussed the importance of a supportive environment, discussed extending NRT, discussed negative mood or depression after quitting, weight gain after smoking is common and discussed dietary, exercise and/or lifestyle changes CPT code: 82066 - 4-10 Minutes PHQ-9: PHQ-9 Score PHQ-9: Total score 0 11/09/24 11:38 Depression Screening Interpretation: Negative Thrive Assessment: Date of Thrive Assessment Date Thrive assessed 11/09/24 11/09/24 11:30 Currently or been in a relationship where the following occur: I choose not to answer Office Procedures Flu Questionnaire Does the patient have a severe egg allergy?: No Does the patient have severe life threatening allergies?: No Does the patient have a fever or illness today?: No Has the patient ever had Guillain-Quail Syndrome?: No Has the patient ever had any past reaction to a flu shot?: No Immunizations Fluarix 5425-1378 (PF) 45 mcg (15 mcg x 3)/0.5 mL IM syringe Performing Provider: SARATH Woodward [place]forming [place] [facility] Administered by: Camille Pack MA on 11/09/24 11:57 Dose Route Admin Location Dispensed Lot Number Expiration Date [facility] Consultant 0.5 mL IM Right Deltoid 0.5 mL [id number] 08/15/25 [id number] [employer] VIS Given Date VIS Provided VIS Publication Date 11/09/24 Single Vaccine 24 Eligibility Eligibility Date Funding Source Not [facility] Eligible 11/09/24 Private Coding Level of Care Code Est Pt Level 3 (33892) Est Pt Prev Care 18-39y(36451) Diagnoses Encounter for general adult medical examination without abnormal findings Z00.00 Attention deficit hyperactivity disorder (ADHD), combined type F90.2 Attention deficit-hyperactivity disorder type: combined inattentive- hyperactive Bipolar 1 disorder F31.9 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 type: disorganized schizophrenia CHAIM (generalized anxiety disorder) F41.1 Moderate episode of recurrent major depressive disorder F33.1 Major depression episode severity: moderate Prediabetes R73.03 Obesity, morbid, BMI 40.0-49.9 E66.01 Chronic GERD K21.9 Hepatomegaly R16.0 Elevated LFTs R79.89 Mild intermittent asthma in adult without complication J45.20 Tobacco dependence F17.200 Laboratory exam ordered as part of routine general medical examination Z00.00 Influenza vaccination administered at current visit Z23 Additional Codes CHAIM-7 Assessment Billing - CHAIM-7 Assessment Tool: CHAIM-7 Assessment 16710 ([id number]) PHQ-9 - 71743 - PHQ-9 Billing: Yes ([id number]) Vital Signs *Quality* - CPT code: 85746 - 4-10 Minutes ([id number]) Asthma Control Questionnaire - ACT Interpretation: Negative ([id number]) Assessment & Plan Assessment & Plan (1) Encounter for general adult medical examination without abnormal findings: Onset Date: ~11/09/24 Code(s): Z00.00 - Encounter for general adult medical examination without abnormal findings Category: Medical (2) ADHD: Code(s): F90.9 - Attention-deficit hyperactivity disorder, unspecified type Category: Medical Qualifiers: Attention deficit-hyperactivity disorder type: combined inattentive- hyperactive Qualified Code(s): F90.2 - Attention-deficit hyperactivity disorder, combined type (3) Bipolar 1 disorder: Code(s): F31.9 - Bipolar disorder, unspecified Category: Medical (4) Schizophrenia: Code(s): F20.9 - Schizophrenia, unspecified Category: Medical Qualifiers: Schizophrenia type: disorganized schizophrenia Qualified Code(s): F20.1 - Disorganized schizophrenia (5) CHAIM (generalized anxiety disorder): Code(s): F41.1 - Generalized anxiety disorder Category: Medical (6) MDD (major depressive disorder), recurrent episode: Code(s): F33.9 - Major depressive disorder, recurrent, unspecified Category: Medical Qualifiers: Major depression episode severity: moderate Qualified Code(s): F33.1 - Major depressive disorder, recurrent, moderate (7) Prediabetes: Code(s): R73.03 - Prediabetes Category: Medical (8) Obesity, morbid, BMI 40.0-49.9: Code(s): E66.01 - Morbid (severe) obesity due to excess calories Category: Medical (9) Chronic GERD: Code(s): K21.9 - Gastro-esophageal reflux disease without esophagitis Category: Medical (10) Hepatomegaly: Code(s): R16.0 - Hepatomegaly, not elsewhere classified Category: Medical (11) Elevated LFTs: Code(s): R79.89 - Other specified abnormal findings of blood chemistry Category: Medical (12) Mild intermittent asthma in adult without complication: Code(s): J45.20 - Mild intermittent asthma, uncomplicated Category: Medical (13) Tobacco dependence: Comment: Smoking Cessation How to Quit There are a lot of ways to quit smoking and many resources to help you. Family members, friends, and co-workers may be supportive or encouraging, but to be successful the desire and commitment to quit must be your own. Most people who have been able to successfully quit smoking made at least one unsuccessful attempt in the past. Try not to view past attempts to quit as failures, but rather as learning experiences. Stopping smoking or using smokeless tobacco is difficult, but anyone can do it. Know the symptoms to expect when you stop. Common symptoms include: ? An intense craving for nicotine ? Anxiety, tension, restlessness, frustration, or impatience ? Difficulty concentrating ? Drowsiness or trouble sleeping, as well as bad dreams and nightmares ? Drowsiness and trouble sleeping ? Headaches ? Increased appetite and weight gain ? Irritability or depression How severe your symptoms are depends on how long you smoked and how many cigaret jose you smoked each day. Feel ready to quit? ? First and foremost, set a quit date and quit completely on that day. Before your quit date, you may begin reducing your cigarette use. But remember, there is no safe level of cigarette smoking. ? List the reasons why you want to quit. Include both short- and long-term benefits. ? Identify the times you are most likely to smoke. For example, do you tend to smoke when feeling stressed or down? When out at night with friends? While drinking coffee or alcohol? When bored? While driving? Right after a meal or sex? During a work break? While watching TV or playing cards? When you are with other smokers? ? Let all of your friends, family, and co-workers know of your plan to stop smoking and your quit date. Just being aware that they know what you're going through can be helpful, especially when you are grumpy. ? Get rid of all your cigarettes just before the quit date, and clean out anything that smells like smoke, such as clothes and furniture. Make a plan about what you will do instead of smoking at those times when you are most likely to smoke. ? Be as specific as possible. For example, drink tea instead of coffee -- tea may not trigger the desire for a cigarette. Or, take a walk when you feel stressed. ? Remove ashtrays and cigarettes from the car. Place pretzels or hard candies there instead. Pretend-smoke with a straw. ? Find activities that focus your hands and mind but are not taxing or fattening. Computer games, solitaire, knitting, sewing, and crossword puzzles may help. ? If you normally smoke after eating, find other ways to end a meal. Play a tape or CD, eat a piece of fruit, get up and make a phone call, or take a walk (a good distraction that also powell calories). Make other changes in your lifestyle. ? Change your daily schedule and habits. Eat at different times or eat several small meals instead of three large ones. Sit in a different chair or even a different room. ? Satisfy your oral habits by eating celery or other low-calorie snack, chewing sugarless gum, or sucking on a cinnamon stick. ? Go to public places and restaurants where smoking is prohibited or restricted. ? Eat regular meals and don't eat too much candy or sweet things. ? Get more exercise. Take walks or ride a bike. Exercise helps relieve the urge to smoke. Set short-term quitting goals and reward yourself when you meet them. ? Every day, put the money you normally spend on cigarettes in a jar. Then buy something pleasurable after a period of time. ? Try not to think about all the days ahead you will need to avoid smoking. Take it one day at a time. ? Even one puff or one cigarette will make your desire for more cigarettes even stronger. However, it is normal to make mistakes. So even if you have one cigarette, you don't need to take the next one. Other tips to help you quit smoking and stick to it: ? Enroll in a smoking cessation program (hospitals, health departments, community centers, and work sites often offer programs). Learn about self-hypnosis or other techniques. ? Ask your health care provider about prescription medications that are safe and appropriate for you. ? Find out about nicotine patches, gum, and sprays. The [employer]'s web site -- www.cancer.org -- is an excellent resource for smokers who are trying to quit, and the [employer] [place] [employer] can help some smokers kick the habit. Above all, don't get discouraged if you aren't able to quit smoking the first time. Nicotine addiction is a hard habit to break. Try something different next time. Develop new strategies, and try again. Many people take several attempts to finally kick the habit. Code(s): F17.200 - Nicotine dependence, unspecified, uncomplicated Category: Medical (14) Laboratory exam ordered as part of routine general medical examination: Code(s): Z00.00 - Encounter for general adult medical examination without abnormal findings Category: Medical (15) Influenza vaccination administered at current visit: Code(s): Z23 - Encounter for immunization Category: Medical Plan . Orders: Orders Hemoglobin A1c Today E66.01 - Morbid (severe) obesity due to excess calories, R16.0 - Hepatomegaly, not elsewhere classified, R73.03 - Prediabetes, R79.89 - Other specified abnormal findings of blood chemistry, Z00.00 - Encounter for general adult medical examination without abnormal findings Comprehensive Met. Panel Today E66.01 - Morbid (severe) obesity due to excess calories, R16.0 - Hepatomegaly, not elsewhere classified, R73.03 - Prediabetes, R79.89 - Other specified abnormal findings of blood chemistry, Z00.00 - Encounter for general adult medical examination without abnormal findings Lipid Panel Today E66.01 - Morbid (severe) obesity due to excess calories, R16.0 - Hepatomegaly, not elsewhere classified, R73.03 - Prediabetes, R79.89 - Other specified abnormal findings of blood chemistry, Z00.00 - Encounter for general adult medical examination without abnormal findings Microalbumin, Random (w Creat) Today E66.01 - Morbid (severe) obesity due to excess calories, R16.0 - Hepatomegaly, not elsewhere classified, R73.03 - Predia betes, R79.89 - Other specified abnormal findings of blood chemistry, Z00.00 - Encounter for general adult medical examination without abnormal findings TSH reflex Free T4 Today E66.01 - Morbid (severe) obesity due to excess calories, R16.0 - Hepatomegaly, not elsewhere classified, R73.03 - Prediabetes, R79.89 - Other specified abnormal findings of blood chemistry, Z00.00 - Encounter for general adult medical examination without abnormal findings Vitamin B12 and Folate Today E66.01 - Morbid (severe) obesity due to excess calories, R16.0 - Hepatomegaly, not elsewhere classified, R73.03 - Prediabetes, R79.89 - Other specified abnormal findings of blood chemistry, Z00.00 - Encounter for general adult medical examination without abnormal findings Vitamin D 25-OH Total Today E66.01 - Morbid (severe) obesity due to excess calories, R16.0 - Hepatomegaly, not elsewhere classified, R73.03 - Prediabetes, R79.89 - Other specified abnormal findings of blood chemistry, Z00.00 - Encounter for general adult medical examination without abnormal findings Influenza [id number] Immunization Today Z23 - Encounter for immunization Medications: Refilled omeprazole 20 mg PO DAILY 90 caps 2RF docusate sodium (Colace) hold for loose stools or diarrhea 100 mg PO BID PRN 180 caps 2RF constipation albuterol sulfate 90 mcg/actuation 2 inhalations inhalation Q6H PRN 8.5 grams 2RF bronchospasm Patient Instructions: Health screenings for women You should visit your health care provider from time to time, even if you are healthy. The purpose of these visits is to: Screen for medical issues Assess your risk for future medical problems Encourage a healthy lifestyle Update vaccinations and other preventive care services Help you get to know your provider in case of an illness Information Even if you feel fine, you should still see your provider for regular checkups. These visits can help you avoid problems in the future. For example, the only way to find out if you have high blood pressure is to have it checked regularly. High blood sugar and high cholesterol levels also may not have any symptoms in the early stages. A simple blood test can check for these conditions. There are specific times when you should see your provider or receive specific health screenings. The [place] Preventive Services Task Force publishes a list of recommended screenings. Below are screening guidelines for women ages 18 to 39. BLOOD PRESSURE SCREENING Your blood pressure should be checked at least once every 3 to 5 years if: Your blood pressure is in the normal range (top number less than 120 mm Hg and bottom number less than 80 mm Hg) You don't have risk factors for high blood pressure Ask your provider if you need your blood pressure checked more often if: The top number is 120 to 129 mm Hg or the bottom number is 70 to 79 mm Hg You have diabetes, heart disease, kidney problems, are overweight, or have certain other health conditions You have a first-degree relative with high blood pressure You are Black You had high blood pressure during a If the top number is 130 mm Hg or greater or the bottom number is 80 mm Hg or greater, this is considered stage 1 hypertension. Schedule an appointment with your provider to learn how you can reduce your blood pressure. Watch for blood pressure screenings in your area. Ask your provider if you can stop in to have your blood pressure checked. BREAST CANCER SCREENING Experts do not agree about the benefits of breast self-exams in finding breast cancer or saving lives. Talk to your provider about what is best for you. A screening mammogram is not recommended for most women under age 40. Your provider may discuss and recommend mammograms, MRI scans, or ultrasounds if you have an increased risk for breast cancer, such as: A mother or sister who had breast cancer at a young age (most often starting screening earlier than the age the close relative was diagnosed) You carry a high-risk genetic marker CERVICAL CANCER SCREENING Cervical cancer screening should start at age 21 years unless your provider advises otherwise. After the first test: Women ages 21 through 29 should have a Pap test every 3 years. Exoprts do not agree on whether HPV testing is recommended for this age group. Women ages 30 through 65 should be screened with either a Pap test every 3 years or the HPV test every 5 years or both tests every 5 years (called cotesting ). Women who have been treated for precancer (cervical dysplasia) should continue to have Pap tests for 20 years after treatment or until age 65, whichever is longer. If you have had your uterus and cervix removed (total hysterectomy), and you have not been diagnosed with cervical cancer or precancer (high grade cervical neoplasia), you do not need cervical cancer screening. CHOLESTEROL SCREENING Cholesterol screening should begin at: Age 45 for women with no known risk factors for coronary heart disease Age 20 for women with known risk factors for coronary heart disease Repeat cholesterol screening should take place: Every 5 years for women with normal cholesterol levels More often if changes occur in lifestyle (including weight gain and diet) More often if you have diabetes, heart disease, kidney problems, or certain other conditions DIABETES SCREENING You should be screened for diabetes starting at age 35 and then repeated every 3 years if you have no risk factors for diabetes. Screening may need to start earlier and be repeated more often if you have other risk factors for diabetes, such as: You have a first degree relative with diabetes. You are overweight or have obesity. You have high blood pressure, prediabetes, or a history of heart disease. Screening for diabetes should be done if you are planning to become and you are overweight and have other risk factors such as high blood pressure. DENTAL EXAM Go to the dentist once or twice every year for an exam and cleaning. Your dentist will evaluate if you need more frequent visits. EYE EXAM Have an eye exam every 5 to 10 years before age 40. If you have vision problems, have an eye exam every 2 years or more often if recommended by your provider. You should have an eye exam that includes an examination of your retina (back of your eye) at least every year if you have diabetes. IMMUNIZATIONS Commonly needed vaccines include: Flu shot: get one every year. COVID-19 vaccine: ask your provider what is best for you. Tetanus-diphtheria and acellular pertussis (Tdap) vaccine: have one at or after age 19 as one of your tetanus-diphtheria vaccines if you did not receive it as an adolescent. Tetanus-diphtheria: have a booster (or Tdap) every 10 years. Varicella vaccine: receive 2 doses if you never had chickenpox or the varicella vaccine. Hepatitis B vaccine: receive 2, 3, or 4 doses, depending on your exact circumstances. Measles, mumps, and rubella (MMR) vaccine: receive 1 to 2 doses if you are not already immune to MMR. Your provider can tell you if you are immune. Ask your provider about the human papillomavirus (HPV) vaccine if: You have not received the HPV vaccine in the past You have not completed the full vaccine series (you should catch up on this shot) Ask your provider if you should receive other immunizations if you have certain health problems that increase your risk for some diseases such as pneumonia. INFECTIOUS DISEASE SCREENING Women who are sexually active should be screened for chlamydia and gonorrhea up until age 25. Women 25 years and older should be screened for chlamydia and gonorrhea if at high risk. Screening for hepatitis C: All adults ages 18 to 79 should get a one-time test for hepatitis C. people should be screened at every . Screening for human immunodeficiency virus (HIV): All people ages 15 to 65 should get a one-time test for HIV. Depending on your lifestyle and medical history, you may also need to be screened for infections such as syphilis and HIV, as well as other infections. PHYSICAL EXAM All adults should visit their provider from time to time, even if they are healthy. The purpose of these visits is to: Screen for disease Assess your risk of future medical problems Encourage a healthy lifestyle Update your vaccinations and other preventive care services Maintain a relationship with a provider in case of an illness Your height, weight, and BMI should be checked at every exam. During your exam, your provider may ask you about: Depression and anxiety Diet and exercise Alcohol and tobacco use Safety issues, such as using seat belts, smoke detectors, and intimate partner violence Your medicines and risk for interactions SKIN SELF-EXAM Your provider may check your skin for signs of skin cancer, especially if you're at high risk, such as if you: Have had skin cancer before Have close relatives with skin cancer Have a weakened immune system OTHER SCREENING Talk with your provider about colon cancer screening if you have a strong family history of colon cancer or polyps, or if you have had inflammatory bowel disease or polyps yourself. Routine bone density screening of women under 40 is not recommended.
[2024-11-09 11:31] VITALS: BP 152/80; PULSE 123; RESP 13; TEMP 36.2; O2SAT 94; BMI 41.0
[2024-11-09 11:49] VITALS: BP 112/56; PULSE 113
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
--- OUTSIDE RECORDS SUMMARY | 2024-11-09 14:33 | XMS_ITS | Patient Health Record ---
Author Organization [facility] Address [address] [place] [address] Care Team Providers Care Value Engineer Name Role Phone ZULY WINTERS N.P. Primary Care Provider Amy nieto Minda De La Cruz Unavailable [phone] Allergies Allergen (clinical drug ingredient) Drug/Non Drug [...] Status W/U Status Risk Notes Problem Hypothyroidism (33797211) Hypothyroidism, unspecified (E03.9) Active confirmed Problem Major depression, single episode (79962952) Major depressive disorder, single episode, unspecified (F32.9) Active confirmed Problem Anxiety disorder (401634572) Anxiety disorder, unspecified (F41.9) Active confirmed Problem Migraine without aura, not refractory (disorder) (591051738) Migraine, unspecified, not intractable, without status migrainosus (G43.909) Active confirmed Problem Uncomplicated asthma (disorder) (270728747) Unspecified asthma, uncomplicated (J45.909) Active confirmed Problem Attention deficit hyperactivity disorder, predominantly inattentive type (disorder) (32089932) Attention and concentration deficit (R41.840) Active confirmed Plan Of Treatment Pending Test Test Name Order Date THIN PREP,HPV IF ASCUS, CT/GC (21-29YR) 11/11/2017 Insurance Providers Payer Name Payer Address Payer Phone Subscriber Number Group Number Insured Name Patient Relationship to Insured Coverage Start Date Coverage End Date MEDICARE [address] [facility], [place] [id number] RAMONA GILL Self - patient is the [...]
== END 2024-11-09 12:00 | disposition home or self-care (01) ==
LOC: HO.HMCFM 11:24
PROVIDERS: PCP Nurse Practitioner Family; Visit Provider Nurse Practitioner Family
DX: Z00.00 Encounter for general adult medical examination without abnormal findings (principal); F31.9 Bipolar disorder, unspecified; E66.01 Morbid (severe) obesity due to excess calories; Z68.41 Body mass index [BMI] 40.0-44.9, adult; F20.1 Disorganized schizophrenia; F90.2 Attention-deficit hyperactivity disorder, combined type; F41.1 Generalized anxiety disorder; R73.03 Prediabetes; K21.9 Gastro-esophageal reflux disease without esophagitis; R16.0 Hepatomegaly, not elsewhere classified; J45.20 Mild intermittent asthma, uncomplicated; Z23 Encounter for immunization

== ENCOUNTER → 2024-11-09 11:23 | Outpatient (BNVA) | payer MEDICAID, SELFPAY | PROVIDERS: PCP Nurse Practitioner Family; Visit Provider Nurse Practitioner Family | DX: Z00.00 Encounter for general adult medical examination without abnormal findings (principal); Z23 Encounter for immunization; F90.2 Attention-deficit hyperactivity disorder, combined type; F31.9 Bipolar disorder, unspecified; F20.1 Disorganized schizophrenia; F41.1 Generalized anxiety disorder; R73.03 Prediabetes; E66.01 Morbid (severe) obesity due to excess calories; Z68.41 Body mass index [BMI] 40.0-44.9, adult; K21.9 Gastro-esophageal reflux disease without esophagitis; R16.0 Hepatomegaly, not elsewhere classified; R79.89 Other specified abnormal findings of blood chemistry; J45.20 Mild intermittent asthma, uncomplicated; F17.200 Nicotine dependence, unspecified, uncomplicated; Z13.31 Encounter for screening for depression; Z13.39 Encounter for screening examination for other mental health and behavioral disorders | CPT/HCPCS: 90471; 90656; 96127; 96160; 99395 ==

== ENCOUNTER 2024-12-19 08:11 | Outpatient (AMB) | payer MEDICARE, MEDICAID, SELFPAY ==
--- NOTE | 2024-12-19 12:12 | MHC.OFFVISWM ---
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 Allergies alcohol Allergy (Severe, Verified 12/19/24 12:14) asthma acetaminophen (From VICODIN) Allergy (Unknown, Verified 12/19/24 12:14) ITCHY/NAUSEOUS Cephalosporins (CEPHALOSPORINS) Allergy (Unknown, Verified 12/19/24 12:14) RASH codeine (CODEINE) Allergy (Unknown, Verified 12/19/24 12:14) ITCHY/NAUSEOUS sumatriptan (From IMITREX) Allergy (Unknown, Verified 12/19/24 12:14) HEAD FELT ON FIRE From VICODIN Allergy (Unknown, Uncoded 12/19/24 12:14) ITCHY/NAUSEOUS Medication List - Last Reconciled 12/19/24 by Montana Stafford MD albuterol sulfate 90 mcg/actuation 2 inhalations inhalation Q6H PRN clonazepam mg PO clozapine 300 mg PO DAILY dextroamphetamine-amphetamine 20 mg ER 1 cap PO QAM docusate sodium (Colace) 100 mg PO BID PRN fluticasone propionate 50 mcg/actuation 2 sprays intranasal BID glycopyrrolate mg PO omeprazole 20 mg PO DAILY risperidone mg PO HPI HPI 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 40.6: Details: Start time: 12.06pm, End time: 12.51pm ?I spent 40 minutes speaking with the patient on the phone plus an additional 5 minutes reviewing and updating records for a total of 45 minutes HPI Comments Details: Previous weight loss efforts: self diets and exercise Wakes up: 10am, Sleeps: 11pm Breakfast: skips Lunch: skips Dinner: 6pm ([employer] dinners) Snacks: 1-2 snacks before dinner (sandwich), cookies after dinner Exercise: none Beverages: Coffee: (3 cups/d with creamer), Tea: none, Soda: ([place] soda) daily, Juice: Cranberry juice often (5 donnie), ETOH: none PFSH Medical History (Updated 12/19/24 @ 12:38 by Montana Stafford MD) Non-insulin dependent type 2 diabetes mellitus Schizophrenia Bipolar 1 disorder Anxiety and depression Kidney stones Chronic GERD ADHD Asthma Breast lump Surgical History (Updated 11/06/23 @ 11:03 by Camille Logan MA) H/O hemorrhoidectomy H/O cone biopsy of cervix Family History (Updated 11/06/23 @ 11:06 by Camille Logan MA) Mother Mental health disorder Skin cancer Father Substance abuse Maternal Grandmother Skin cancer Paternal Grandfather Skin cancer Social History (Updated 09/07/24 @ 15:11 by Mildred Ngo [facility]) Household Members: None Housing: Apartment Are you a primary auto care center manager to a significant other at home: No Do you presently have visiting nurse or other home services: No 75 years or older and lives alone: No Alcohol intake: never Patient Tobacco Use Status: Current everyday Tobacco user Cigarettes Per Day: 10 Years Smoked: 10 e-Cigarette/Vaping Use: Never Used Second Hand Smoke Exposure: No Substance Use Type: Marijuana Current occupational status: unemployed Cognitive needs: No Hearing needs: No Vision needs: No Telehealth Telehealth Telehealth Platform: Telephone Location of provider rendering services: practice address Location of patient: address on file Patient Identification confirmed using: Name, : Yes Telehealth method: voice only Patient verbally consented to treatment: Yes Patient verbally consented to billing insurance company: Yes Patient informed of any privacy concerns related to visit: Yes Minutes spent on Phone/Video with Pt.: 45 Assessment & Plan Assessment & Plan (1) Obesity, morbid, BMI 40.0-49.9: Code(s): E66.01 - Morbid (severe) obesity due to excess calories Category: Medical Plan: 1.?Nutritional counseling. Start with one premade PREMIER protein (buy at [employer] or [employer]) shake (mix 4oz of Premier mixed with 4oz low fat unsweetened almond milk each) at 11am-1pm, one protein bar (Fit Crunch protein bar, buy at [employer], or [employer]) at 2pm-4pm, dinner at 5pm (8 forks of protein and 8 forks of salad/vegetables), another premade PREMIER protein shake (mix 4oz of Premier mixed with 4oz low fat unsweetened almond milk each) at 7pm-9pm, another HALF Fit Crunch protein bar at 10pm-11pm So you do 2 protein shakes, 1.5 protein bars and one meal per day. Meal to include lean meat (beef, fish, pork, turkey, chicken), or spanish yogurt, or egg whites, or beans with a salad with olive oil and fruits (berries, pears, apples, kiwi). Avoid salt, breads, potatoes, rice, pasta, desserts. 3. Each shake would be drunk slowly, like coffee in a period of 2 hours. 4. Cut each bar in 4 pieces and eat each piece in 30min ?to make each bar last 2 hours. 5. I emphasized the importance of measuring accurately the food portion and measure it when serving the food in plate 6. The meal portions include 8 full-size forks of meat and 8 full-size forks of salad. You always eat the meat portion but you can replace up to 4 forks for salad/vegetables with rice, potatoes or pasta, or a fruit ?if you like. The less you do it the better weight loss will be. 7. One full-size fork is what it can be scooped on the fork without falling aside and not what can be bit with the fork. Use regular forks like those you find in a typical restaurant. 8.? Please buy the body composition scale we discussed and send me weight measurements as soon as possible and then once a week. Always include your diet and exercise plan. 9. Start treadmill with an incline of 2.0 and speed of 3.0. Increase incline by 1 every 3 min to a max incline of 8.0, stay 3min at 8.0 and then return to 2.0 and repeat same steps until calorie goal is met. Goal is to burn 2000 calories per week on exercise, which means either 300 calories daily, or 400 calories 5 days per week. Start also weight exercises with 20-30lbs for chest/shoulders/abdomen and 40-50lbs for thighs doing 2 sets of 15 repetitions each. 10. The patient has diabetes with most recent Hba1c of 6.8 and blood sugar of 209 mg/dL. In addition, she has a very strong history of diabetes in the family with both her mother and maternal grandmother having medically treated diabetes. I ordered a medication to help you with the diabetes which is called Brian. My office will try to authorize it. Please let me know when you receive it so I can give you a meal and exercise plan. Common side effects include nausea, vomiting, constipation, diarrhea, abdominal pain. Please let me know if you develop any of these symptoms. 11.?It is important of avoiding and for at least 18 months postoperatively and has been discussed at the infosession. 12. Goal is to lose at least 1.5-2lbs per week 13. Goal to lose at least 10% of your weight, which is about 29lbs. Minimum weight goal: 200lbs. 14. Please follow the diet plan exactly without any change. If you don't like something about the plan or you feel hungry you need to communicate with me so I can help you revise the plan. You should not change the plan yourself Medications: New tirzepatide (Mounjaro) for 4 weeks 2.5 mg (0.5 mL) subcut QWEEK 2 mL 0RF E11.9 - Type 2 diabetes mellitus without complications
[2024-12-19 12:51] VITALS: BMI 39.3
== END 2024-12-19 12:52 | disposition home or self-care (01) ==
LOC: HO.HBS 08:11
PROVIDERS: PCP Nurse Practitioner Family; Visit Provider Surgery
DX: E66.9 Obesity, unspecified (principal); Z68.39 Body mass index [BMI] 39.0-39.9, adult
CPT/HCPCS: 99204